=== PATIENT | female | born 1990 | race Caucasian/White ===

== ENCOUNTER 2018-03-24 15:44 | Emergency (ER) | payer BC ==
[2018-03-24 17:27] LABS: Absolute Monocytes 0.8 K/uL (0.1-1.3); Absolute Neutrophil 10.3 K/uL (1.8-8.0); Basophils % 0.7 % (0-1.3); Eosinophils % 0.9 % (0-4.4); Hematocrit 39.3 % (36.0-45.0); Lymphocytes % 8.5 % (15.3-44.8); MCH 29.7 pg (27.0-35.0); MCV 88.8 fL (80-100); MPV 7.5 fL (7.6-11.3); Monocytes % 6.7 % (3.3-12.3); RBC Red Blood Cell Count 4.42 M/uL (3.86-4.86)
[2018-03-24 17:46] LABS: ALT/SGPT 53 U/L (12-78); AST/SGOT 30 U/L (15-37); Alkaline Phosphatase 61 U/L (45-117); BUN Blood Urea Nitrogen 13 mg/dL (7-18); Bicarbonate 28 mmol/L (21-32); Bilirubin Direct < 0.1 mg/dL (0-0.2); Bilirubin Total 0.2 mg/dL (0.2-1.0); Glucose Level 119 mg/dL (74-106); Lipase 94 U/L (73-393); Potassium 4.1 mmol/L (3.5-5.1); Protein, Total 8.4 g/dL (6.4-8.2); Sodium Level 141 mmol/L (136-145)
[2018-03-24] MEDS ORDERED: MORPHINE 4 MG/ML SYR ONE (17:50)
[2018-03-24] MEDS ORDERED: ONDANSETRON 4 MG/2 ML VIAL ONE (17:50)
[2018-03-24 17:52] LABS: Urine Blood 2+ (NEG); Urine Glucose NEGATIVE (NEG); Urine Protein TRACE (NEG); Urine Specific Gravity >1.030 (1.005-1.030)
--- NOTE | 2018-03-24 18:08 | RAD REPORT ---
EXAM DESCRIPTION: CT - Stone Protocol - 03/24/2018 5:58 pm CLINICAL HISTORY: Abdominal pain. Left flank pain COMPARISON: July 2016 TECHNIQUE: Computed axial tomography of the abdomen pelvis was obtained without oral or IV contrast. Lack of IV and oral contrast limits evaluation of solid organs, bowel, and vessels. Coronal reformat faina images were obtained and reviewed. All CT scans are performed using dose optimization technique as appropriate and may include automated exposure control or mA/KV adjustment according to patient size. FINDINGS: Bilateral small renal calculi. Mild to moderate left hydronephrosis with perirenal strandi ng. 4 millimeter calculus proximal left ureter Hounsfield unit 843. 2 millimeter calculus lies adjace nt to this. The liver has a diminished attenuation consistent with fatty infiltration. Spleen, pancreas and adrenals appear grossly normal There is no evidence of diverticulitis. The appendix appears normal Small umbilical hernia IMPRESSION: Two calculi proximal left ureter resulting in mild to moderate hydronephrosis
[2018-03-24] MEDS ORDERED: KETOROLAC 30 MG/ML INJ ONE (18:53)
[2018-03-24] MEDS ORDERED: NA CHLORIDE 0.9% 1,000 ML ONE (18:53)
[2018-03-24] MEDS ORDERED: TAMSULOSIN 0.4 MG SR CAP ONE (18:53)
--- NOTE | 2018-03-24 19:59 | EDPHYS ---
Physician Documentation [facility] Name: Sharon Bose Age: 27 yrs Sex: Female : 1990 Arrival Date: 03/24/2018 Time: 15:46 Bed 28 Private MD: ED Physician Micheal Gracia HPI: 03/24 17:10 This 27 yrs old Female presents to ER via Ambulatory with complaints of Flank jmm Pain. 17:10 The patient complains of pain in the left flank. The pain radiates to the left upper jmm quadrant. Onset: The symptoms/episode began/occurred this morning. Modifying factors: The symptoms are alleviated by nothing. the symptoms are aggravated by nothing. Associated signs and symptoms: Pertinent positives: diarrhea, nausea, Pertinent negatives:. This is a 27 year old female with no chronic medical conditions that presents to the ED with left flank pain beginning this morning with nausea and diarrhea. Patient states having a history of kidney stones previously. Denies fever. Pain radiates from the flank to the left upper quadrant. . PATIENT BILLER: 16:16 LMP 03/19/2018 jl7 Historical: - Allergies: 16:16 No Known Allergies; jl7 - Home Meds: 16:16 None [Active]; jl7 - PMHx: 16:16 None; jl7 - PSHx: 16:16 None; jl7 - Immunization history:: Adult Immunizations not up to date. - Social history:: Smoking status: Patient/guardian denies using tobacco. - Ebola Screening: : No symptoms or risks identified at this time. ROS: 17:10 Constitutional: Negative for fever, chills, and weight loss, Cardiovascular: Negative jmm for chest pain, palpitations, and edema, Respiratory: Negative for shortness of breath, cough, wheezing, and pleuritic chest pain. 17:10 : Negative for injury, bleeding, discharge, and swelling, Skin: Negative for injury, rash, and discoloration. 17:10 Abdomen/GI: Positive for abdominal pain, nausea, diarrhea. 17:10 Back: Positive for flank pain, on the left. 17:10 All other systems are negative. Exam: 17:10 Constitutional: This is a well developed, well nourished patient who is awake, alert, jmm and in no acute distress. Head/Face: atraumatic. Eyes: EOMI, no conjunctival erythema appreciated Chest/axilla: Normal chest wall appearance and motion. Cardiovascular: Regular rate and rhythm. No edema appreciated Respiratory: Normal respirations, no respiratory distress appreciated 17:10 Abdomen/GI: Inspection: abdomen appears normal, Bowel sounds: normal, Palpation: soft, nontender. 17:10 Back: pain, that is mild, CVA tenderness, that is mild, is noted on the left. 17:10 Musculoskeletal/extremity: ROM: intact in all extremities. 17:10 Skin: Appearance: Color: normal in color. 17:10 Neuro: Orientation: is normal, Mentation: is normal, Memory: is normal. 17:10 Psych: Behavior/mood is pleasant, cooperative. Vital Signs: 16:16 BP 126 / 72; Pulse 87; Resp 16 S; Temp 99(O); Pulse Ox 100% on R/A; Weight 113.4 kg jl7 (R); Height 5 ft. 3 in. (160.02 cm) (R); Pain 8/10; 17:15 BP 124 / 86; Pulse 71; Resp 17; Pulse Ox 100% on R/A; Pain 8/10; ed1 18:25 BP 125 / 84; Pulse 70; Resp 17; Pulse Ox 100% on R/A; Pain 6/10; ed1 19:38 BP 129 / 84; Pulse 76; Resp 16; Pulse Ox 99% on R/A; Pain 7/10; ed1 16:16 Body Mass Index 44.29 (113.40 kg, 160.02 cm) jl7 MDM: 16:39 Patient medically screened. [facility] 19:58 Data reviewed: vital signs, nurses notes. Counseling: I had a detailed discussion with [facility] the patient and/or guardian regarding: the historical points, exam findings, and any diagnostic results supporting the discharge/admit diagnosis, lab results, radiology results, to return to the emergency department if symptoms worsen or persist or if there are any questions or concerns that arise at home. 19:58 Data reviewed: lab test result(s), radiologic studies, CT scan. [facility] 19:58 Response to treatment: the patient's symptoms have markedly improved after treatment. [facility] 03/24 16:56 Order name: Basic Metabolic Panel [facility] 03/24 16:56 Order name: CBC with Diff [facility] 03/24 16:56 Order name: Creatinine for Radiology [facility] 03/24 16:56 Order name: Hepatic Function [facility] 03/24 16:56 Order name: Lipase [facility] 03/24 17:25 Order name: Urine Dipstick--Ancillary (enter results) 03/24 17:25 Order name: Urine --Ancillary (enter results) 03/24 17:28 Order name: CBC with Automated Diff; Complete Time: 18:41 EDMS 03/24 17:45 Order name: Creatinine (Radiology Only); Complete Time: 18:41 EDMS 03/24 17:47 Order name: Basic Metabolic Panel; Complete Time: 18:41 EDMS 03/24 17:47 Order name: Liver (Hepatic) Function; Complete Time: 18:41 EDMS 03/24 17:47 Order name: Lipase; Complete Time: 18:41 EDMS 03/24 17:53 Order name: Urine --Ancillary; Complete Time: 18:41 EDMS 03/24 17:53 Order name: Urine Dipstick-Ancillary; Complete Time: 18:41 [facility] 03/24 16:56 Order name: IV Saline Lock; Complete Time: 17:17 [facility] 03/24 16:56 Order name: Labs collected and sent; Complete Time: 17:17 [facility] 03/24 16:56 Order name: Urine Dipstick-Ancillary (obtain specimen); Complete Time: 17:17 [facility] 03/24 17:10 Order name: CT Stone Protocol [facility] 03/24 18:09 Order name: CT; Complete Time: 18:41 EDMS Administered Medications: 17:47 Drug: morphine 2 mg Route: IVP; Site: right antecubital; hb 18:26 Follow up: Response: No adverse reaction; Pain is unchanged, physician notified ed1 17:47 Drug: Zofran 4 mg Route: IVP; Site: right antecubital; hb 18:27 Follow up: Response: No adverse reaction; Nausea is decreased ed1 18:50 Drug: NS 0.9% 1000 ml Route: IV; Rate: 1 bolus; Site: right antecubital; ed1 20:15 Follow up: IV Status: Completed infusion; IV Intake: 1000ml rv 18:50 Drug: Flomax 0.4 mg Route: PO; ed1 20:16 Follow up: Response: No adverse reaction rv 18:51 Drug: Ketorolac 30 mg Route: IVP; Site: right antecubital; hb 20:16 Follow up: Response: No adverse reaction; Marked relief of symptoms rv Disposition: 03/25 06:35 Co-signature as Attending Physician, Micheal Gracia MD I agree with the assessment and [facility] plan of care. Disposition: 03/24/18 19:58 Discharged to Home. Impression: Calculus of ureter. - Condition is Stable. - Discharge Instructions: Kidney Stones. - Prescriptions for Zofran ODT 4 mg Oral tablet,disintegrating - place 1 tablet by TRANSLINGUAL route every 4-6 hours; 20 tablet. Keflex 500 mg Oral Capsule - take 1 capsule by ORAL route every 12 hours for 10 days; 20 capsule. Tylenol- Codeine #3 300-30 mg Oral Tablet - take 1 tablet by ORAL route every 6 hours As needed; 12 tablet. Flomax 0.4 mg Oral Capsule, Sust. Release 24 hr - take 1 capsule by ORAL route once daily 1/2 hour following the same meal each day; 30 capsule. - Medication Reconciliation Form, Thank You Letter, Antibiotic Education, Prescription Opioid Use form. - Follow up: Farzana Recio MD; When: 2 - 3 days; Reason: Recheck today's complaints, Continuance of care, Re-evaluation by your physician. Signatures: Dispatcher [employer] EDMS Mihceal Gracia MD MD cha Mickail, Joel, PA PA jmm Riggs, Erika, HEALTH DIAGNOSTICS TEACHER HEALTH DIAGNOSTICS TEACHER ed1 Christine Gallagher, RN RN Wil Patel RN RN jl7 Jose Koenig RN RN rv Corrections: (The following items were deleted from the chart) 03/24 20:16 19:58 03/24/2018 19:58 Discharged to Home. Impression: Calculus of ureter. Condition is rv Stable. Forms are Medication Reconciliation Form, Thank You Letter, Antibiotic Education, Prescription Opioid Use. Follow up: Farzana Recio; When: 2 - 3 days; Reason: Recheck today's complaints, Continuance of care, Re-evaluation by your physician. apolinar
--- NOTE | 2018-03-24 19:59 | ER ---
Nurse's Notes [facility] Name: Sharon Bose Age: 27 yrs Sex: Female : 1990 Arrival Date: 03/24/2018 Time: 15:46 Bed 28 Private MD: Diagnosis: Calculus of ureter Presentation: 03/24 16:15 Presenting complaint: Patient states: Left flank pain, N/V/D began at 0900 this morning jl7 and got worse after I ate. Transition of care: patient was not received from another setting of care. Onset of symptoms was March 24, 2018. Risk Assessment: Do you want to hurt yourself or someone else? Patient reports no desire to harm self or others. Initial Sepsis Screen: Does the patient meet any 2 criteria? No. Patient's initial sepsis screen is negative. Does the patient have a suspected source of infection? No. Patient's initial sepsis screen is negative. Care prior to arrival: None. 16:15 Method Of Arrival: Ambulatory 7 16:15 Acuity: ABDIFATAH 3 jl7 Triage Assessment: 16:16 General: Appears in no apparent distress. uncomfortable, Behavior is calm, cooperative, jl7 appropriate for age. Pain: Complains of pain in left flank Pain does not radiate. Pain currently is 8 out of 10 on a pain scale. Quality of pain is described as aching, sharp, Pain began this morning Is continuous. TAILMAN: 16:16 LMP 03/19/2018 jl7 Historical: - Allergies: 16:16 No Known Allergies; jl7 - Home Meds: 16:16 None [Active]; jl7 - PMHx: 16:16 None; jl7 - PSHx: 16:16 None; jl7 - Immunization history:: Adult Immunizations not up to date. - Social history:: Smoking status: Patient/guardian denies using tobacco. - Ebola Screening: : No symptoms or risks identified at this time. Screenin:26 Abuse screen: Denies threats or abuse. Denies injuries from another. Nutritional ed1 screening: No deficits noted. Tuberculosis screening: No symptoms or risk factors identified. Fall Risk None identified. Assessment: 16:26 General: Appears uncomfortable, Behavior is calm, cooperative. Pain: Complains of pain ed1 in low back area, left low back and left mid back Pain radiates to abdomen Pain currently is 8 out of 10 on a pain scale. Quality of pain is described as sharp, Pain began suddenly, this am. Neuro: Level of Consciousness is awake, alert, obeys commands, Oriented to person, place, time, situation. Cardiovascular: Denies chest pain, Heart tones S1 S2 present. Respiratory: Airway is patent Respiratory effort is even, unlabored, Respiratory pattern is regular, symmetrical, Denies cough, shortness of breath. GI: Reports nausea, Patient currently denies diarrhea, vomiting. : Denies burning with urination, cramping discharge. EENT: No signs and/or symptoms were reported regarding the EENT system. Derm: Skin is pink, warm \T\ dry. Musculoskeletal: Circulation, motion, and sensation intact. 16:35 Reassessment: I agree with previous assessment. hb 17:15 Reassessment: Patient appears in no apparent distress at this time. No changes from ed1 previously documented assessment. Patient and/or family updated on plan of care and expected duration. Pain level reassessed. Patient is alert, oriented x 3, equal unlabored respirations, skin warm/dry/pink. Patient states symptoms have not improved. 18:25 Reassessment: Patient appears in no apparent distress at this time. Patient and/or ed1 family updated on plan of care and expected duration. Pain level reassessed. Patient is alert, oriented x 3, equal unlabored respirations, skin warm/dry/pink. Patient states symptoms have not improved. 19:38 Reassessment: Patient appears in no apparent distress at this time. No changes from ed1 previously documented assessment. Patient and/or family updated on plan of care and expected duration. Pain level reassessed. Patient is alert, oriented x 3, equal unlabored respirations, skin warm/dry/pink. Patient states symptoms have not improved. Vital Signs: 16:16 BP 126 / 72; Pulse 87; Resp 16 S; Temp 99(O); Pulse Ox 100% on R/A; Weight 113.4 kg jl7 (R); Height 5 ft. 3 in. (160.02 cm) (R); Pain 8/10; 17:15 BP 124 / 86; Pulse 71; Resp 17; Pulse Ox 100% on R/A; Pain 8/10; ed1 18:25 BP 125 / 84; Pulse 70; Resp 17; Pulse Ox 100% on R/A; Pain 6/10; ed1 19:38 BP 129 / 84; Pulse 76; Resp 16; Pulse Ox 99% on R/A; Pain 7/10; ed1 16:16 Body Mass Index 44.29 (113.40 kg, 160.02 cm) jl7 ED Course: 15:46 Patient arrived in ED. rg4 16:16 Triage completed. jl7 16:16 Arm band placed on right wrist. jl7 16:18 Wil Patel, RN is Primary Nurse. jl7 16:22 Elizabeth Cavanaugh LVN is Primary Nurse. ed1 16:26 Cyril Astorga PA is PHCP. jmm 16:26 Micheal Gracia MD is Attending Physician. jmm 16:26 Patient has correct armband on for positive identification. Bed in low position. Call ed1 light in reach. 16:28 Awaiting ED provider evaluation. ed1 17:15 Initial lab(s) drawn, by fl, sent to lab. Inserted saline lock: 22 gauge in right ed1 antecubital area, using aseptic technique. Blood collected. 17:17 Radiology exam delayed due to test not completed at this time. kw1 17:57 CT completed. Patient tolerated procedure well. Patient moved back from CT. nj 19:58 Farzana Recio MD is Referral Physician. [facility] 20:15 No provider procedures requiring assistance completed. IV discontinued, intact, rv bleeding controlled, No redness/swelling at site. Pressure dressing applied. Administered Medications: 17:47 Drug: morphine 2 mg Route: IVP; Site: right antecubital; hb 18:26 Follow up: Response: No adverse reaction; Pain is unchanged, physician notified ed1 17:47 Drug: Zofran 4 mg Route: IVP; Site: right antecubital; hb 18:27 Follow up: Response: No adverse reaction; Nausea is decreased ed1 18:50 Drug: NS 0.9% 1000 ml Route: IV; Rate: 1 bolus; Site: right antecubital; ed1 20:15 Follow up: IV Status: Completed infusion; IV Intake: 1000ml rv 18:50 Drug: Flomax 0.4 mg Route: PO; ed1 20:16 Follow up: Response: No adverse reaction rv 18:51 Drug: Ketorolac 30 mg Route: IVP; Site: right antecubital; hb 20:16 Follow up: Response: No adverse reaction; Marked relief of symptoms rv Intake: 20:15 IV: 1000ml; Total: 1000ml. rv Outcome: 19:58 Discharge ordered by MD. jiang 20:15 Discharged to home ambulatory, with significant other. rv 20:15 Condition: good 20:15 Discharge instructions given to patient, Instructed on discharge instructions, follow up and referral plans. medication usage, Demonstrated understanding of instructions, follow-up care, medications, Prescriptions given X 4. 20:16 Patient left the ED. rv Signatures: Cyril Astorga PA PA jmm Riggs, Erika, FLEXO OPERATOR FLEXO OPERATOR ed1 Christine Gallagher, RN RN Tennille Bran rg4 Supa Man Jahala, RN RN jl7 Luz Elena Gabriel kw1 Jose Koenig RN RN rv
== END 2018-03-24 20:16 | disposition home or self-care (01) ==
LOC: ER 15:44
DX: N20.1 Calculus of ureter (principal)
CPT/HCPCS: 36415; 74176; 76377; 80048; 80076; 81003; 81025; 83690; 85025; 96361; 96374; 96375; 99284; J2405; J7030

== ENCOUNTER 2020-11-22 11:49 | Emergency (ER) | payer OTHER ==
--- OUTSIDE RECORDS SUMMARY | 2020-11-22 11:55 | XMS REPORT | Continuity of Care Document ---
:1990 Author Organization [facility] t Address [address] [place] [address] Care Team Providers Name Role Phone Unavailable Unavailable Unavailable Payers Payer Name Policy Type Policy Number Effective Date Expiration Date S ource Problems This patient has no known problems. Allergies, Adverse Reactions, Alerts Allergy Allergy Status Severity Reaction(s) Onset Inactive Treating Comm ents Source Name Type Date Date Clinician No Known DA Active U [facility] Allergie 8-27 Clear s 00:00: Bran 00 [facility] Medications This patient has no known medications. Procedures This patient has no known procedures. Results Test Description Test Time Test Comments Results Result Comments Source CBC W/AUTO DIFF 2018-12-31 07:20:00 Test Item Value Reference Range Interpretation Comme nts WHITE BLOOD CELL (test code = WBC) 12.4 K/mm3 4.5-12.5 N RED BLOOD CELL (test code = RBC) 3.81 mill/mm3 3.7-5.2 N HEMOGLOBIN (test code = HGB) 11.3 gram/dL 11.5-15.5 L HEMATOCRIT (test code = HCT) 35.2 % 36.0-46.0 L MEAN CELL VOLUME (test code = MCV) 92.4 fL 80-98 N MEAN CELL HGB (test code = MCH) 29.7 picogram 27.0-33.0 N MEAN CELL HGB CONCETRATION (test code = MCHC) 32.1 gram/dL 33.0-36. 0 L RED CELL DISTRIBUTION WIDTH (test code = RDW) 14.0 % 11.6-16. 2 N RED CELL DISTRIBUTION WIDTH SD (test code = RDW-SD) 47.2 fL 37 .0-51.0 N PLATELET COUNT (test code = PLT) 240 K/mm3 150-450 N MEAN PLATELET VOLUME (test code = MPV) 9.6 fL 6.7-11.0 N NEUTROPHIL % (test code = NT%) 63.6 % 39.0-69.0 N IMMATURE GRANULOCYTE % (test code = IG%) 0.9 % 0.0-5.0 N LYMPHOCYTE % (test code = LY%) 25.1 % 25.0-55.0 N MONOCYTE % (test code = MO%) 8.5 % 0.0-10.0 N EOSINOPHIL % (test code = EO%) 1.5 % 0.0-5.0 N BASOPHIL % (test code = BA%) 0.4 % 0.0-1.0 N NUCLEATED RBC % (test code = NRBC%) 0.0 % 0-0 N NEUTROPHIL # (test code = NT#) 7.90 K/mm3 1.8-7.7 H IMMATURE GRANULOCYTE # (test code = IG#) 0.11 x10 3/uL 0-0.03 H LYMPHOCYTE # (test code = LY#) 3.12 K/mm3 1.0-5.0 N MONOCYTE # (test code = MO#) 1.06 K/mm3 0-0.8 H EOSINOPHIL # (test code = EO#) 0.19 K/mm3 0.0-0.5 N BASOPHIL # (test code = BA#) 0.05 K/mm3 0.0-0.2 N NUCLEATED RBC # (test code = NRBC#) 0.00 K/mm3 0.0-0.1 N MANUAL DIFF REQUIRED (test code = MDIFF) NO SPECIMEN COMMENTS: day 1HIV 1 2 COMBO AG/AB [id number] 00:11:00 Test Item Value Reference Range Interpretation Comments HIV 1 2 COMBO AB/AG NON NONREACTIVE NONREACTIV E HIV AG/AB SCREEN REACTIVE P24 ANTIGEN (test code = NONREACTIVE [id number]) NONREACTIVE HIV 1&2 ANTIBODY NONREACTIVE THE HIV-1 P24 TEST HELPS DISTINGUISH ACU TE HIV-1INFECTIONF ROM ESTABLISHED HIV -1 INFECTION WHEN THE SPECIMEN ISPOSI TIVE FOR HIV-1 P24 A NTIGEN. HIV-1 P24 ANTIG EN IS HIGHEST IN THE FIRST FEW WEEKS AFTERINFECTION URINALYSIS [id number] 21:03:00 Test Item Value Reference Range Interpretation Comments UA COLOR (test code = YELLOW YELLOW COLU) UA APPEARANCE (test code Cloudy CLEAR A = APPU) UA GLUCOSE DIPSTICK (test NEGATIVE mg/dL NEGATIVE code = DGLUU) UA BILIRUBIN DIPSTICK NEGATIVE mg/dL NEGATIVE (test code = BILU) UA KETONE DIPSTICK (test NEGATIVE mg/dL NEGATIVE code = KETU) UA SPECIFIC GRAVITY (test 1.025 1.001-1.035 code = SGU) UA BLOOD DIPSTICK (test 0.2 mg/dL (2+) mg/dL NEGATIVE A code = MADHU) UA PH DIPSTICK (test code 6.5 5.0-8.0 = KELTON) UA PROTEIN DIPSTICK (test 50 (1+) mg/dL NEGATIVE A code = PROU) UA UROBILINIOGEN DIPSTICK Normal mg/dL NEGATIVE (test code = URO) UA NITRITE DIPSTICK (test NEGATIVE NEGATIVE code = FIORELLA) UA LEUKOCYTE ESTERASE W 500 Koko/uL (3+) NEGATIVE A REFLEX (test code = Koko/uL LEUUR) UA WBC (test code = WBCU) 21-50 per HPF 0-5 A UA RBC (test code = RBCU) 21-50 #/HPF 0-5 UA EPITHELIAL CELLS (test MANY per HPF FEW code = EPIU) UA BACTERIA (test code = FEW #/HPF NONE A BACU) UA CALCIUM OXALATE FEW #/HPF NONE A CRYSTALS (test code = CAOXU) UA HYALINE CAST (test 0-2 #/LPF 0-5 code = HYALU) UA MUCUS (test code = FEW #/LPF FEW MUCU) UA AMORPHOUS SEDIMENT FEW #/LPF NONE (test code = AMORU) URINALYSIS [id number] 20:58:00 Test Item Value Reference Range Interpretation Comments UA COLOR (test code = YELLOW YELLOW COLU) UA APPEARANCE (test code Cloudy CLEAR A = APPU) UA GLUCOSE DIPSTICK (test NEGATIVE mg/dL NEGATIVE code = DGLUU) UA BILIRUBIN DIPSTICK NEGATIVE mg/dL NEGATIVE (test code = BILU) UA KETONE DIPSTICK (test NEGATIVE mg/dL NEGATIVE code = KETU) UA SPECIFIC GRAVITY (test 1.025 1.001-1.035 code = SGU) UA BLOOD DIPSTICK (test 0.2 mg/dL (2+) mg/dL NEGATIVE A code = MADHU) UA PH DIPSTICK (test code 6.5 5.0-8.0 = KELTON) UA PROTEIN DIPSTICK (test 50 (1+) mg/dL NEGATIVE A code = PROU) UA UROBILINIOGEN DIPSTICK Normal mg/dL NEGATIVE (test code = URO) UA NITRITE DIPSTICK (test NEGATIVE NEGATIVE code = FIORELLA) UA LEUKOCYTE ESTERASE W 500 Koko/uL (3+) NEGATIVE A REFLEX (test code = Koko/uL LEUUR) UA WBC (test code = WBCU) per HPF 0-5 UA RBC (test code = RBCU) per HPF 0-5 UA EPITHELIAL CELLS (test per HPF Few code = EPIU) UA BACTERIA (test code = per HPF NONE BACU) URINALYSIS [id number] 20:58:00 Test Item Value Reference Range Interpretation Comments UA COLOR (test code = YELLOW YELLOW COLU) UA APPEARANCE (test code Cloudy CLEAR A = APPU) UA GLUCOSE DIPSTICK (test NEGATIVE mg/dL NEGATIVE code = DGLUU) UA BILIRUBIN DIPSTICK NEGATIVE mg/dL NEGATIVE (test code = BILU) UA KETONE DIPSTICK (test NEGATIVE mg/dL NEGATIVE code = KETU) UA SPECIFIC GRAVITY (test 1.025 1.001-1.035 code = SGU) UA BLOOD DIPSTICK (test 0.2 mg/dL (2+) mg/dL NEGATIVE A code = MADHU) UA PH DIPSTICK (test code 6.5 5.0-8.0 = KELTON) UA PROTEIN DIPSTICK (test 50 (1+) mg/dL NEGATIVE A code = PROU) UA UROBILINIOGEN DIPSTICK Normal mg/dL NEGATIVE (test code = URO) UA NITRITE DIPSTICK (test NEGATIVE NEGATIVE code = FIORELLA) UA LEUKOCYTE ESTERASE W 500 Koko/uL (3+) NEGATIVE A REFLEX (test code = Koko/uL LEUUR) UA WBC (test code = WBCU) per HPF 0-5 UA RBC (test code = RBCU) per HPF 0-5 UA EPITHELIAL CELLS (test per HPF Few code = EPIU) UA BACTERIA (test code = per HPF NONE BACU) AG HEPAT B [id number] 19:50:00 Test Item Value Reference Range Interpretation Comments AG HEPAT B SURF (test code Nonreactive Index Nonreactive = HBSAG) AB [id number] 19:50:00 Test Item Value Reference Range Interpretation Comments AB TREPONEMA (test code = Nonreactive Index NonReactive TREPAB) COMPREHENSIVE METABOLIC [id number] 19:23:00 Test Item Value Reference Range Interpretation Comments SODIUM (test code = 141 mmol/L 136-145 N NA) POTASSIUM (test code = 3.7 mmol/L 3.5-5.1 N K) CHLORIDE (test code = 108.0 mmol/L 98-107 H CL) CARBON DIOXIDE (test 22.0 mmol/L 21-32 N code = CO2) ANION GAP (test code = 14.7 10-20 N GAP) GLUCOSE (test code = 85 mg/dL 74-106 N GLU) BLOOD UREA NITROGEN 9 mg/dL 7-18 N (test code = BUN) GLOMERULAR FILTRATION > 60 mL/min >=60 Estima faina GFR by RATE (test code = GFR) using Modified MDRD formula.Chronic kidney disease is defined as eith er kidney damageor GFR <60 mL/min/1.73 m2 for >3 months. CREATININE (test code 0.60 mg/dL 0.55-1.02 N Note change in = CREAT) reference range due to change in reagent. BUN/CREATININE RATIO 15.0 10-20 N (test code = BUN/CREA) TOTAL PROTEIN (test 7.2 gram/dL 6.4-8.2 N code = PROT) ALBUMIN (test code = 2.7 g/dL 3.4-5.0 L ALB) GLOBULIN (test code = 4.5 gram/dL 2.7-4.2 H GLOB) ALBUMIN/GLOBULIN RATIO 0.6 0.75-1.50 L (test code = A/G) CALCIUM (test code = 9.6 mg/dL 8.5-10.1 N CA) BILIRUBIN TOTAL (test 0.20 mg/dL 0.0-1.0 N code = BILT) SGOT/AST (test code = 9 IUnit/L 15-37 L AST) SGPT/ALT (test code = 16 IUnit/L 12-78 N ALT) ALKALINE PHOSPHATASE 95 IUnit/L 45-117 N Note change in TOTAL (test code = reference range due ALKP) to change in reagent. URIC [id number] 19:23:00 Test Item Value Reference Range Interpretation Comments URIC ACID (test code = URIC) 3.5 mg/dL 2.6-7.2 N COMPREHENSIVE METABOLIC [id number] 19:15:00 Test Item Value Reference Range Interpretation Comments SODIUM (test code = NA) 141 mmol/L 136-145 N POTASSIUM (test code = K) 3.7 mmol/L 3.5-5.1 N CHLORIDE (test code = CL) 108.0 mmol/L 98-107 H CARBON DIOXIDE (test code = CO2) mmol/L 21-32 ANION GAP (test code = GAP) 10-20 GLUCOSE (test code = GLU) mg/dL 74-106 BLOOD UREA NITROGEN (test code = mg/dL 7-18 BUN) GLOMERULAR FILTRATION RATE (test mL/min >=60 code = GFR) CREATININE (test code = CREAT) mg/dL 0.55-1.02 BUN/CREATININE RATIO (test code 10-20 = BUN/CREA) TOTAL PROTEIN (test code = PROT) gram/dL 6.4-8.2 ALBUMIN (test code = ALB) g/dL 3.4-5.0 GLOBULIN (test code = GLOB) gram/dL 2.7-4.2 ALBUMIN/GLOBULIN RATIO (test 0.75-1.50 code = A/G) CALCIUM (test code = CA) mg/dL 8.5-10.1 BILIRUBIN TOTAL (test code = mg/dL 0.0-1.0 BILT) SGOT/AST (test code = AST) IUnit/L 15-37 SGPT/ALT (test code = ALT) IUnit/L 12-78 ALKALINE PHOSPHATASE TOTAL (test IUnit/L 45-117 code = ALKP) URIC [id number] 19:15:00 Test Item Value Reference Range Interpretation Comments URIC ACID (test code = URIC) mg/dL 2.6-7.2 CBC W/AUTO [id number] 19:02:00 Test Item Value Reference Range Interpretation Comments WHITE BLOOD CELL (test code = 10.9 K/mm3 4.5-12.5 N WBC) RED BLOOD CELL (test code = 3.82 mill/mm3 3.7-5.2 N RBC) HEMOGLOBIN (test code = HGB) 11.4 gram/dL 11.5-15.5 L HEMATOCRIT (test code = HCT) 34.2 % 36.0-46.0 L MEAN CELL VOLUME (test code = 89.5 fL 80-98 N MCV) MEAN CELL HGB (test code = MCH) 29.8 picogram 27.0-33.0 N MEAN CELL HGB CONCETRATION 33.3 gram/dL 33.0-36.0 N (test code = MCHC) RED CELL DISTRIBUTION WIDTH 13.8 % 11.6-16.2 N (test code = RDW) RED CELL DISTRIBUTION WIDTH SD 44.8 fL 37.0-51.0 N (test code = RDW-SD) PLATELET COUNT (test code = 271 K/mm3 150-450 N PLT) MEAN PLATELET VOLUME (test code 9.6 fL 6.7-11.0 N = MPV) NEUTROPHIL % (test code = NT%) 68.2 % 39.0-69.0 N IMMATURE GRANULOCYTE % (test 0.7 % 0.0-5.0 N code = IG%) LYMPHOCYTE % (test code = LY%) 18.2 % 25.0-55.0 L MONOCYTE % (test code = MO%) 11.8 % 0.0-10.0 H EOSINOPHIL % (test code = EO%) 0.8 % 0.0-5.0 N BASOPHIL % (test code = BA%) 0.3 % 0.0-1.0 N NUCLEATED RBC % (test code = 0.0 % 0-0 N NRBC%) NEUTROPHIL # (test code = NT#) 7.43 K/mm3 1.8-7.7 N IMMATURE GRANULOCYTE # (test 0.08 x10 3/uL 0-0.03 H code = IG#) LYMPHOCYTE # (test code = LY#) 1.99 K/mm3 1.0-5.0 N MONOCYTE # (test code = MO#) 1.29 K/mm3 0-0.8 H EOSINOPHIL # (test code = EO#) 0.09 K/mm3 0.0-0.5 N BASOPHIL # (test code = BA#) 0.03 K/mm3 0.0-0.2 N NUCLEATED RBC # (test code = 0.00 K/mm3 0.0-0.1 N NRBC#) UA GLUCOSE DIPSTIC [id number] 14:31:00 Test Item Value Reference Range Interpretation Comments UA GLUCOSE DIPSTIC POC (test code = Negative Negative GLUUP) UA GLU: NEGATIVEKET UA NEGATIVEPH UA 7.0UA NIT NegativePROT UA NEGATIVEBL UA NEGATIVEUA KOKO NegativeTime performed: 1400UA KETONE DIPSTICK [id number] 14:31:00 Test Item Value Reference Range Interpretation Comments UA KETONE DIPSTICK POC (test code = Negative KETUP) UA GLU: NEGATIVEKET UA NEGATIVEPH UA 7.0UA NIT NegativePROT UA NEGATIVEBL UA NEGATIVEUA KOKO NegativeTime performed: 1400UA BLOOD DIPSTIC [id number] 14:31:00 Test Item Value Reference Range Interpretation Comments UA BLOOD DIPSTIC POC (test code = BLUP) NEGATIVE UA GLU: NEGATIVEKET UA NEGATIVEPH UA 7.0UA NIT NegativePROT UA NEGATIVEBL UA NEGATIVEUA KOKO NegativeTime performed: 1400UA PH DIPSTIC [id number] 14:31:00 Test Item Value Reference Range Interpretation Comments UA PH DIPSTIC POC (test code = PHUP) 5-8 UA GLU: NEGATIVEKET UA NEGATIVEPH UA 7.0UA NIT NegativePROT UA NEGATIVEBL UA NEGATIVEUA KOKO NegativeTime performed: 1400UA PROTEIN DIPSTICK [id number] 14:31:00 Test Item Value Reference Range Interpretation Comments UA PROTEIN DIPSTICK POC (test code = Neg -15 DPROUP) UA GLU: NEGATIVEKET UA NEGATIVEPH UA 7.0UA NIT NegativePROT UA NEGATIVEBL UA NEGATIVEUA KOKO NegativeTime performed: 1400UA NITRITE DIPSTICK [id number] 14:31:00 Test Item Value Reference Range Interpretation Comments UA NITRITE DIPSTICK POC (test code = Negative NITUP) UA GLU: NEGATIVEKET UA NEGATIVEPH UA 7.0UA NIT NegativePROT UA NEGATIVEBL UA NEGATIVEUA KOKO NegativeTime performed: 1400UA LEUKOCYTE ESTERASE [id number] 14:31:00 Test Item Value Reference Range Interpretation Comments UA LEUKOCYTE ESTERASE POC (test code = NEGATIVE LEUUPOC) UA GLU: NEGATIVEKET UA NEGATIVEPH UA 7.0UA NIT NegativePROT UA NEGATIVEBL UA NEGATIVEUA KOKO NegativeTime performed: 1400UA GLUCOSE DIPSTIC [id number] 14:31:00 Test Item Value Reference Range Interpretation Comments UA GLUCOSE DIPSTIC POC (test code = Negative Negative GLUUP) UA GLU: NEGATIVEKET UA NEGATIVEPH UA 7.0UA NIT NegativePROT UA NEGATIVEBL UA NEGATIVEUA KOKO NegativeTime performed: 1400UA KETONE DIPSTICK [id number] 14:31:00 Test Item Value Reference Range Interpretation Comments UA KETONE DIPSTICK POC (test code = Negative Negative KETUP) UA GLU: NEGATIVEKET UA NEGATIVEPH UA 7.0UA NIT NegativePROT UA NEGATIVEBL UA NEGATIVEUA KOKO NegativeTime performed: 1400UA BLOOD DIPSTIC [id number] 14:31:00 Test Item Value Reference Range Interpretation Comments UA BLOOD DIPSTIC POC (test code = BLUP) NEGATIVE UA GLU: NEGATIVEKET UA NEGATIVEPH UA 7.0UA NIT NegativePROT UA NEGATIVEBL UA NEGATIVEUA KOKO NegativeTime performed: 1400UA PH DIPSTIC [id number] 14:31:00 Test Item Value Reference Range Interpretation Comments UA PH DIPSTIC POC (test code = PHUP) 5-8 UA GLU: NEGATIVEKET UA NEGATIVEPH UA 7.0UA NIT NegativePROT UA NEGATIVEBL UA NEGATIVEUA KOKO NegativeTime performed: 1400UA PROTEIN DIPSTICK [id number] 14:31:00 Test Item Value Reference Range Interpretation Comments UA PROTEIN DIPSTICK POC (test code = Neg -15 DPROUP) UA GLU: NEGATIVEKET UA NEGATIVEPH UA 7.0UA NIT NegativePROT UA NEGATIVEBL UA NEGATIVEUA KOKO NegativeTime performed: 1400UA NITRITE DIPSTICK [id number] 14:31:00 Test Item Value Reference Range Interpretation Comments UA NITRITE DIPSTICK POC (test code = Negative NITUP) UA GLU: NEGATIVEKET UA NEGATIVEPH UA 7.0UA NIT NegativePROT UA NEGATIVEBL UA NEGATIVEUA KOKO NegativeTime performed: 1400UA LEUKOCYTE ESTERASE [id number] 14:31:00 Test Item Value Reference Range Interpretation Comments UA LEUKOCYTE ESTERASE POC (test code = NEGATIVE LEUUPOC) UA GLU: NEGATIVEKET UA NEGATIVEPH UA 7.0UA NIT NegativePROT UA NEGATIVEBL UA NEGATIVEUA KOKO NegativeTime performed: 1400UA GLUCOSE DIPSTIC [id number] 14:31:00 Test Item Value Reference Range Interpretation Comments UA GLUCOSE DIPSTIC POC (test code = Negative Negative GLUUP) UA GLU: NEGATIVEKET UA NEGATIVEPH UA 7.0UA NIT NegativePROT UA NEGATIVEBL UA NEGATIVEUA KOKO NegativeTime performed: 1400UA KETONE DIPSTICK [id number] 14:31:00 Test Item Value Reference Range Interpretation Comments UA KETONE DIPSTICK POC (test code = Negative Negative KETUP) UA GLU: NEGATIVEKET UA NEGATIVEPH UA 7.0UA NIT NegativePROT UA NEGATIVEBL UA NEGATIVEUA KOKO NegativeTime performed: 1400UA BLOOD DIPSTIC [id number] 14:31:00 Test Item Value Reference Range Interpretation Comments UA BLOOD DIPSTIC POC (test code = Negative NEGATIVE BLUP) UA GLU: NEGATIVEKET UA NEGATIVEPH UA 7.0UA NIT NegativePROT UA NEGATIVEBL UA NEGATIVEUA KOKO NegativeTime performed: 1400UA PH DIPSTIC [id number] 14:31:00 Test Item Value Reference Range Interpretation Comments UA PH DIPSTIC POC (test code = PHUP) 5-8 UA GLU: NEGATIVEKET UA NEGATIVEPH UA 7.0UA NIT NegativePROT UA NEGATIVEBL UA NEGATIVEUA KOKO NegativeTime performed: 1400UA PROTEIN DIPSTICK [id number] 14:31:00 Test Item Value Reference Range Interpretation Comments UA PROTEIN DIPSTICK POC (test code = Neg -15 DPROUP) UA GLU: NEGATIVEKET UA NEGATIVEPH UA 7.0UA NIT NegativePROT UA NEGATIVEBL UA NEGATIVEUA KOKO NegativeTime performed: 1400UA NITRITE DIPSTICK [id number] 14:31:00 Test Item Value Reference Range Interpretation Comments UA NITRITE DIPSTICK POC (test code = Negative NITUP) UA GLU: NEGATIVEKET UA NEGATIVEPH UA 7.0UA NIT NegativePROT UA NEGATIVEBL UA NEGATIVEUA KOKO NegativeTime performed: 1400UA LEUKOCYTE ESTERASE [id number] 14:31:00 Test Item Value Reference Range Interpretation Comments UA LEUKOCYTE ESTERASE POC (test code = NEGATIVE LEUUPOC) UA GLU: NEGATIVEKET UA NEGATIVEPH UA 7.0UA NIT NegativePROT UA NEGATIVEBL UA NEGATIVEUA KOKO NegativeTime performed: 1400UA GLUCOSE DIPSTIC [id number] 14:31:00 Test Item Value Reference Range Interpretation Comments UA GLUCOSE DIPSTIC POC (test code = Negative Negative GLUUP) UA GLU: NEGATIVEKET UA NEGATIVEPH UA 7.0UA NIT NegativePROT UA NEGATIVEBL UA NEGATIVEUA KOKO NegativeTime performed: 1400UA KETONE DIPSTICK [id number] 14:31:00 Test Item Value Reference Range Interpretation Comments UA KETONE DIPSTICK POC (test code = Negative Negative KETUP) UA GLU: NEGATIVEKET UA NEGATIVEPH UA 7.0UA NIT NegativePROT UA NEGATIVEBL UA NEGATIVEUA KOKO NegativeTime performed: 1400UA BLOOD DIPSTIC [id number] 14:31:00 Test Item Value Reference Range Interpretation Comments UA BLOOD DIPSTIC POC (test code = Negative NEGATIVE BLUP) UA GLU: NEGATIVEKET UA NEGATIVEPH UA 7.0UA NIT NegativePROT UA NEGATIVEBL UA NEGATIVEUA KOKO NegativeTime performed: 1400UA PH DIPSTIC [id number] 14:31:00 Test Item Value Reference Range Interpretation Comments UA PH DIPSTIC POC (test code = PHUP) 7 5-8 N UA GLU: NEGATIVEKET UA NEGATIVEPH UA 7.0UA NIT NegativePROT UA NEGATIVEBL UA NEGATIVEUA KOKO NegativeTime performed: 1400UA PROTEIN DIPSTICK [id number] 14:31:00 Test Item Value Reference Range Interpretation Comments UA PROTEIN DIPSTICK POC (test code = Neg -15 DPROUP) UA GLU: NEGATIVEKET UA NEGATIVEPH UA 7.0UA NIT NegativePROT UA NEGATIVEBL UA NEGATIVEUA KOKO NegativeTime performed: 1400UA NITRITE DIPSTICK [id number] 14:31:00 Test Item Value Reference Range Interpretation Comments UA NITRITE DIPSTICK POC (test code = Negative NITUP) UA GLU: NEGATIVEKET UA NEGATIVEPH UA 7.0UA NIT NegativePROT UA NEGATIVEBL UA NEGATIVEUA KOKO NegativeTime performed: 1400UA LEUKOCYTE ESTERASE [id number] 14:31:00 Test Item Value Reference Range Interpretation Comments UA LEUKOCYTE ESTERASE POC (test code = NEGATIVE LEUUPOC) UA GLU: NEGATIVEKET UA NEGATIVEPH UA 7.0UA NIT NegativePROT UA NEGATIVEBL UA NEGATIVEUA KOKO NegativeTime performed: 1400UA GLUCOSE DIPSTIC [id number] 14:31:00 Test Item Value Reference Range Interpretation Comments UA GLUCOSE DIPSTIC POC (test code = Negative Negative GLUUP) UA GLU: NEGATIVEKET UA NEGATIVEPH UA 7.0UA NIT NegativePROT UA NEGATIVEBL UA NEGATIVEUA KOKO NegativeTime performed: 1400UA KETONE DIPSTICK [id number] 14:31:00 Test Item Value Reference Range Interpretation Comments UA KETONE DIPSTICK POC (test code = Negative Negative KETUP) UA GLU: NEGATIVEKET UA NEGATIVEPH UA 7.0UA NIT NegativePROT UA NEGATIVEBL UA NEGATIVEUA KOKO NegativeTime performed: 1400UA BLOOD DIPSTIC [id number] 14:31:00 Test Item Value Reference Range Interpretation Comments UA BLOOD DIPSTIC POC (test code = Negative NEGATIVE BLUP) UA GLU: NEGATIVEKET UA NEGATIVEPH UA 7.0UA NIT NegativePROT UA NEGATIVEBL UA NEGATIVEUA KOKO NegativeTime performed: 1400UA PH DIPSTIC [id number] 14:31:00 Test Item Value Reference Range Interpretation Comments UA PH DIPSTIC POC (test code = PHUP) 7 5-8 N UA GLU: NEGATIVEKET UA NEGATIVEPH UA 7.0UA NIT NegativePROT UA NEGATIVEBL UA NEGATIVEUA KOKO NegativeTime performed: 1400UA PROTEIN DIPSTICK [id number] 14:31:00 Test Item Value Reference Range Interpretation Comments UA PROTEIN DIPSTICK POC (test code = Negative Neg -15 DPROUP) UA GLU: NEGATIVEKET UA NEGATIVEPH UA 7.0UA NIT NegativePROT UA NEGATIVEBL UA NEGATIVEUA KOKO NegativeTime performed: 1400UA NITRITE DIPSTICK [id number] 14:31:00 Test Item Value Reference Range Interpretation Comments UA NITRITE DIPSTICK POC (test code = Negative NITUP) UA GLU: NEGATIVEKET UA NEGATIVEPH UA 7.0UA NIT NegativePROT UA NEGATIVEBL UA NEGATIVEUA KOKO NegativeTime performed: 1400UA LEUKOCYTE ESTERASE [id number] 14:31:00 Test Item Value Reference Range Interpretation Comments UA LEUKOCYTE ESTERASE POC (test code = NEGATIVE LEUUPOC) UA GLU: NEGATIVEKET UA NEGATIVEPH UA 7.0UA NIT NegativePROT UA NEGATIVEBL UA NEGATIVEUA KOKO NegativeTime performed: 1400UA GLUCOSE DIPSTIC [id number] 14:31:00 Test Item Value Reference Range Interpretation Comments UA GLUCOSE DIPSTIC POC (test code = Negative Negative GLUUP) UA GLU: NEGATIVEKET UA NEGATIVEPH UA 7.0UA NIT NegativePROT UA NEGATIVEBL UA NEGATIVEUA KOKO NegativeTime performed: 1400UA KETONE DIPSTICK [id number] 14:31:00 Test Item Value Reference Range Interpretation Comments UA KETONE DIPSTICK POC (test code = Negative Negative KETUP) UA GLU: NEGATIVEKET UA NEGATIVEPH UA 7.0UA NIT NegativePROT UA NEGATIVEBL UA NEGATIVEUA KOKO NegativeTime performed: 1400UA BLOOD DIPSTIC [id number] 14:31:00 Test Item Value Reference Range Interpretation Comments UA BLOOD DIPSTIC POC (test code = Negative NEGATIVE BLUP) UA GLU: NEGATIVEKET UA NEGATIVEPH UA 7.0UA NIT NegativePROT UA NEGATIVEBL UA NEGATIVEUA KOKO NegativeTime performed: 1400UA PH DIPSTIC [id number] 14:31:00 Test Item Value Reference Range Interpretation Comments UA PH DIPSTIC POC (test code = PHUP) 7 5-8 N UA GLU: NEGATIVEKET UA NEGATIVEPH UA 7.0UA NIT NegativePROT UA NEGATIVEBL UA NEGATIVEUA [place] NegativeTime performed: 1400UA PROTEIN DIPSTICK [id number] 14:31:00 Test Item Value Reference Range Interpretation Comments UA PROTEIN DIPSTICK POC (test code = Negative Neg -15 DPROUP) UA GLU: NEGATIVEKET UA NEGATIVEPH UA 7.0UA NIT NegativePROT UA NEGATIVEBL UA NEGATIVEUA [place] NegativeTime performed: 1400UA NITRITE DIPSTICK [id number] 14:31:00 Test Item Value Reference Range Interpretation Comments UA NITRITE DIPSTICK POC (test code = Negative Negative NITUP) UA GLU: NEGATIVEKET UA NEGATIVEPH UA 7.0UA NIT NegativePROT UA NEGATIVEBL UA NEGATIVEUA [place] NegativeTime performed: 1400UA LEUKOCYTE ESTERASE [id number] 14:31:00 Test Item Value Reference Range Interpretation Comments UA LEUKOCYTE ESTERASE POC (test code = NEGATIVE LEUUPOC) UA GLU: NEGATIVEKET UA NEGATIVEPH UA 7.0UA NIT NegativePROT UA NEGATIVEBL UA NEGATIVEUA [place] NegativeTime performed: 1400UA GLUCOSE DIPSTIC [id number] 14:31:00 Test Item Value Reference Range Interpretation Comments UA GLUCOSE DIPSTIC POC (test code = Negative Negative GLUUP) UA GLU: NEGATIVEKET UA NEGATIVEPH UA 7.0UA NIT NegativePROT UA NEGATIVEBL UA NEGATIVEUA [place] NegativeTime performed: 1400UA KETONE DIPSTICK [id number] 14:31:00 Test Item Value Reference Range Interpretation Comments UA KETONE DIPSTICK POC (test code = Negative Negative KETUP) UA GLU: NEGATIVEKET UA NEGATIVEPH UA 7.0UA NIT NegativePROT UA NEGATIVEBL UA NEGATIVEUA [place] NegativeTime performed: 1400UA BLOOD DIPSTIC [id number] 14:31:00 Test Item Value Reference Range Interpretation Comments UA BLOOD DIPSTIC POC (test code = Negative NEGATIVE BLUP) UA GLU: NEGATIVEKET UA NEGATIVEPH UA 7.0UA NIT NegativePROT UA NEGATIVEBL UA NEGATIVEUA [place] NegativeTime performed: 1400UA PH DIPSTIC [id number] 14:31:00 Test Item Value Reference Range Interpretation Comments UA PH DIPSTIC POC (test code = PHUP) 7 5-8 N UA GLU: NEGATIVEKET UA NEGATIVEPH UA 7.0UA NIT NegativePROT UA NEGATIVEBL UA NEGATIVEUA [place] NegativeTime performed: 1400UA PROTEIN DIPSTICK [id number] 14:31:00 Test Item Value Reference Range Interpretation Comments UA PROTEIN DIPSTICK POC (test code = Negative Neg -15 DPROUP) UA GLU: NEGATIVEKET UA NEGATIVEPH UA 7.0UA NIT NegativePROT UA NEGATIVEBL UA NEGATIVEUA [place] NegativeTime performed: 1400UA NITRITE DIPSTICK [id number] 14:31:00 Test Item Value Reference Range Interpretation Comments UA NITRITE DIPSTICK POC (test code = Negative Negative NITUP) UA GLU: NEGATIVEKET UA NEGATIVEPH UA 7.0UA NIT NegativePROT UA NEGATIVEBL UA NEGATIVEUA [place] NegativeTime performed: 1400UA LEUKOCYTE ESTERASE [id number] 14:31:00 Test Item Value Reference Range Interpretation Comments UA LEUKOCYTE ESTERASE POC (test code NEGATIVE NEGATIVE = LEUUPOC) UA GLU: NEGATIVEKET UA NEGATIVEPH UA 7.0UA NIT NegativePROT UA NEGATIVEBL UA NEGATIVEUA [place] NegativeTime performed: 1400UA GLUCOSE DIPSTIC [id number] 16:26:00 Test Item Value Reference Range Interpretation Comments UA GLUCOSE DIPSTIC POC (test code = Negative Negative GLUUP) UA GLU: NEGATIVEKET UA NEGATIVEPH UA 8.0UA NIT NegativePROT UA 15 (TRACE)BL UA NEGATIVEUA KOKO NegativeTime performed: 1600UA KETONE DIPSTICK [id number] 16:26:00 Test Item Value Reference Range Interpretation Comments UA KETONE DIPSTICK POC (test code = Negative KETUP) UA GLU: NEGATIVEKET UA NEGATIVEPH UA 8.0UA NIT NegativePROT UA 15 (TRACE)BL UA NEGATIVEUA KOKO NegativeTime performed: 1600UA BLOOD DIPSTIC [id number] 16:26:00 Test Item Value Reference Range Interpretation Comments UA BLOOD DIPSTIC POC (test code = BLUP) NEGATIVE UA GLU: NEGATIVEKET UA NEGATIVEPH UA 8.0UA NIT NegativePROT UA 15 (TRACE)BL UA NEGATIVEUA KOKO NegativeTime performed: 1600UA PH DIPSTIC [id number] 16:26:00 Test Item Value Reference Range Interpretation Comments UA PH DIPSTIC POC (test code = PHUP) 5-8 UA GLU: NEGATIVEKET UA NEGATIVEPH UA 8.0UA NIT NegativePROT UA 15 (TRACE)BL UA NEGATIVEUA KOKO NegativeTime performed: 1600UA PROTEIN DIPSTICK [id number] 16:26:00 Test Item Value Reference Range Interpretation Comments UA PROTEIN DIPSTICK POC (test code = Neg -15 DPROUP) UA GLU: NEGATIVEKET UA NEGATIVEPH UA 8.0UA NIT NegativePROT UA 15 (TRACE)BL UA NEGATIVEUA KOKO NegativeTime performed: 1600UA NITRITE DIPSTICK [id number] 16:26:00 Test Item Value Reference Range Interpretation Comments UA NITRITE DIPSTICK POC (test code = Negative NITUP) UA GLU: NEGATIVEKET UA NEGATIVEPH UA 8.0UA NIT NegativePROT UA 15 (TRACE)BL UA NEGATIVEUA KOKO NegativeTime performed: 1600UA LEUKOCYTE ESTERASE [id number] 16:26:00 Test Item Value Reference Range Interpretation Comments UA LEUKOCYTE ESTERASE POC (test code = NEGATIVE LEUUPOC) UA GLU: NEGATIVEKET UA NEGATIVEPH UA 8.0UA NIT NegativePROT UA 15 (TRACE)BL UA NEGATIVEUA KOKO NegativeTime performed: 1600UA GLUCOSE DIPSTIC [id number] 16:26:00 Test Item Value Reference Range Interpretation Comments UA GLUCOSE DIPSTIC POC (test code = Negative Negative GLUUP) UA GLU: NEGATIVEKET UA NEGATIVEPH UA 8.0UA NIT NegativePROT UA 15 (TRACE)BL UA NEGATIVEUA KOKO NegativeTime performed: 1600UA KETONE DIPSTICK [id number] 16:26:00 Test Item Value Reference Range Interpretation Comments UA KETONE DIPSTICK POC (test code = Negative Negative KETUP) UA GLU: NEGATIVEKET UA NEGATIVEPH UA 8.0UA NIT NegativePROT UA 15 (TRACE)BL UA NEGATIVEUA KOKO NegativeTime performed: 1600UA BLOOD DIPSTIC [id number] 16:26:00 Test Item Value Reference Range Interpretation Comments UA BLOOD DIPSTIC POC (test code = BLUP) NEGATIVE UA GLU: NEGATIVEKET UA NEGATIVEPH UA 8.0UA NIT NegativePROT UA 15 (TRACE)BL UA NEGATIVEUA KOKO NegativeTime performed: 1600UA PH DIPSTIC [id number] 16:26:00 Test Item Value Reference Range Interpretation Comments UA PH DIPSTIC POC (test code = PHUP) 5-8 UA GLU: NEGATIVEKET UA NEGATIVEPH UA 8.0UA NIT NegativePROT UA 15 (TRACE)BL UA NEGATIVEUA KOKO NegativeTime performed: 1600UA PROTEIN DIPSTICK [id number] 16:26:00 Test Item Value Reference Range Interpretation Comments UA PROTEIN DIPSTICK POC (test code = Neg -15 DPROUP) UA GLU: NEGATIVEKET UA NEGATIVEPH UA 8.0UA NIT NegativePROT UA 15 (TRACE)BL UA NEGATIVEUA KOKO NegativeTime performed: 1600UA NITRITE DIPSTICK [id number] 16:26:00 Test Item Value Reference Range Interpretation Comments UA NITRITE DIPSTICK POC (test code = Negative NITUP) UA GLU: NEGATIVEKET UA NEGATIVEPH UA 8.0UA NIT NegativePROT UA 15 (TRACE)BL UA NEGATIVEUA KOKO NegativeTime performed: 1600UA LEUKOCYTE ESTERASE [id number] 16:26:00 Test Item Value Reference Range Interpretation Comments UA LEUKOCYTE ESTERASE POC (test code = NEGATIVE LEUUPOC) UA GLU: NEGATIVEKET UA NEGATIVEPH UA 8.0UA NIT NegativePROT UA 15 (TRACE)BL UA NEGATIVEUA KOKO NegativeTime performed: 1600UA GLUCOSE DIPSTIC [id number] 16:26:00 Test Item Value Reference Range Interpretation Comments UA GLUCOSE DIPSTIC POC (test code = Negative Negative GLUUP) UA GLU: NEGATIVEKET UA NEGATIVEPH UA 8.0UA NIT NegativePROT UA 15 (TRACE)BL UA NEGATIVEUA KOKO NegativeTime performed: 1600UA KETONE DIPSTICK [id number] 16:26:00 Test Item Value Reference Range Interpretation Comments UA KETONE DIPSTICK POC (test code = Negative Negative KETUP) UA GLU: NEGATIVEKET UA NEGATIVEPH UA 8.0UA NIT NegativePROT UA 15 (TRACE)BL UA NEGATIVEUA KOKO NegativeTime performed: 1600UA BLOOD DIPSTIC [id number] 16:26:00 Test Item Value Reference Range Interpretation Comments UA BLOOD DIPSTIC POC (test code = Negative NEGATIVE BLUP) UA GLU: NEGATIVEKET UA NEGATIVEPH UA 8.0UA NIT NegativePROT UA 15 (TRACE)BL UA NEGATIVEUA KOKO NegativeTime performed: 1600UA PH DIPSTIC [id number] 16:26:00 Test Item Value Reference Range Interpretation Comments UA PH DIPSTIC POC (test code = PHUP) 5-8 UA GLU: NEGATIVEKET UA NEGATIVEPH UA 8.0UA NIT NegativePROT UA 15 (TRACE)BL UA NEGATIVEUA KOKO NegativeTime performed: 1600UA PROTEIN DIPSTICK [id number] 16:26:00 Test Item Value Reference Range Interpretation Comments UA PROTEIN DIPSTICK POC (test code = Neg -15 DPROUP) UA GLU: NEGATIVEKET UA NEGATIVEPH UA 8.0UA NIT NegativePROT UA 15 (TRACE)BL UA NEGATIVEUA KOKO NegativeTime performed: 1600UA NITRITE DIPSTICK [id number] 16:26:00 Test Item Value Reference Range Interpretation Comments UA NITRITE DIPSTICK POC (test code = Negative NITUP) UA GLU: NEGATIVEKET UA NEGATIVEPH UA 8.0UA NIT NegativePROT UA 15 (TRACE)BL UA NEGATIVEUA KOKO NegativeTime performed: 1600UA LEUKOCYTE ESTERASE [id number] 16:26:00 Test Item Value Reference Range Interpretation Comments UA LEUKOCYTE ESTERASE POC (test code = NEGATIVE LEUUPOC) UA GLU: NEGATIVEKET UA NEGATIVEPH UA 8.0UA NIT NegativePROT UA 15 (TRACE)BL UA NEGATIVEUA KOKO NegativeTime performed: 1600UA GLUCOSE DIPSTIC [id number] 16:26:00 Test Item Value Reference Range Interpretation Comments UA GLUCOSE DIPSTIC POC (test code = Negative Negative GLUUP) UA GLU: NEGATIVEKET UA NEGATIVEPH UA 8.0UA NIT NegativePROT UA 15 (TRACE)BL UA NEGATIVEUA KOKO NegativeTime performed: 1600UA KETONE DIPSTICK [id number] 16:26:00 Test Item Value Reference Range Interpretation Comments UA KETONE DIPSTICK POC (test code = Negative Negative KETUP) UA GLU: NEGATIVEKET UA NEGATIVEPH UA 8.0UA NIT NegativePROT UA 15 (TRACE)BL UA NEGATIVEUA KOKO NegativeTime performed: 1600UA BLOOD DIPSTIC [id number] 16:26:00 Test Item Value Reference Range Interpretation Comments UA BLOOD DIPSTIC POC (test code = Negative NEGATIVE BLUP) UA GLU: NEGATIVEKET UA NEGATIVEPH UA 8.0UA NIT NegativePROT UA 15 (TRACE)BL UA NEGATIVEUA KOKO NegativeTime performed: 1600UA PH DIPSTIC [id number] 16:26:00 Test Item Value Reference Range Interpretation Comments UA PH DIPSTIC POC (test code = PHUP) 8 5-8 N UA GLU: NEGATIVEKET UA NEGATIVEPH UA 8.0UA NIT NegativePROT UA 15 (TRACE)BL UA NEGATIVEUA KOKO NegativeTime performed: 1600UA PROTEIN DIPSTICK [id number] 16:26:00 Test Item Value Reference Range Interpretation Comments UA PROTEIN DIPSTICK POC (test code = Neg -15 DPROUP) UA GLU: NEGATIVEKET UA NEGATIVEPH UA 8.0UA NIT NegativePROT UA 15 (TRACE)BL UA NEGATIVEUA KOKO NegativeTime performed: 1600UA NITRITE DIPSTICK [id number] 16:26:00 Test Item Value Reference Range Interpretation Comments UA NITRITE DIPSTICK POC (test code = Negative NITUP) UA GLU: NEGATIVEKET UA NEGATIVEPH UA 8.0UA NIT NegativePROT UA 15 (TRACE)BL UA NEGATIVEUA KOKO NegativeTime performed: 1600UA LEUKOCYTE ESTERASE [id number] 16:26:00 Test Item Value Reference Range Interpretation Comments UA LEUKOCYTE ESTERASE POC (test code = NEGATIVE LEUUPOC) UA GLU: NEGATIVEKET UA NEGATIVEPH UA 8.0UA NIT NegativePROT UA 15 (TRACE)BL UA NEGATIVEUA KOKO NegativeTime performed: 1600UA GLUCOSE DIPSTIC [id number] 16:26:00 Test Item Value Reference Range Interpretation Comments UA GLUCOSE DIPSTIC POC (test code = Negative Negative GLUUP) UA GLU: NEGATIVEKET UA NEGATIVEPH UA 8.0UA NIT NegativePROT UA 15 (TRACE)BL UA NEGATIVEUA KOKO NegativeTime performed: 1600UA KETONE DIPSTICK [id number] 16:26:00 Test Item Value Reference Range Interpretation Comments UA KETONE DIPSTICK POC (test code = Negative Negative KETUP) UA GLU: NEGATIVEKET UA NEGATIVEPH UA 8.0UA NIT NegativePROT UA 15 (TRACE)BL UA NEGATIVEUA KOKO NegativeTime performed: 1600UA BLOOD DIPSTIC [id number] 16:26:00 Test Item Value Reference Range Interpretation Comments UA BLOOD DIPSTIC POC (test code = Negative NEGATIVE BLUP) UA GLU: NEGATIVEKET UA NEGATIVEPH UA 8.0UA NIT NegativePROT UA 15 (TRACE)BL UA NEGATIVEUA KOKO NegativeTime performed: 1600UA PH DIPSTIC [id number] 16:26:00 Test Item Value Reference Range Interpretation Comments UA PH DIPSTIC POC (test code = PHUP) 8 5-8 N UA GLU: NEGATIVEKET UA NEGATIVEPH UA 8.0UA NIT NegativePROT UA 15 (TRACE)BL UA NEGATIVEUA KOKO NegativeTime performed: 1600UA PROTEIN DIPSTICK [id number] 16:26:00 Test Item Value Reference Range Interpretation Comments UA PROTEIN DIPSTICK POC (test code 15 (Trace) Neg -15 A = DPROUP) UA GLU: NEGATIVEKET UA NEGATIVEPH UA 8.0UA NIT NegativePROT UA 15 (TRACE)BL UA NEGATIVEUA OKKO NegativeTime performed: 1600UA NITRITE DIPSTICK [id number] 16:26:00 Test Item Value Reference Range Interpretation Comments UA NITRITE DIPSTICK POC (test code = Negative NITUP) UA GLU: NEGATIVEKET UA NEGATIVEPH UA 8.0UA NIT NegativePROT UA 15 (TRACE)BL UA NEGATIVEUA KOKO NegativeTime performed: 1600UA LEUKOCYTE ESTERASE [id number] 16:26:00 Test Item Value Reference Range Interpretation Comments UA LEUKOCYTE ESTERASE POC (test code = NEGATIVE LEUUPOC) UA GLU: NEGATIVEKET UA NEGATIVEPH UA 8.0UA NIT NegativePROT UA 15 (TRACE)BL UA NEGATIVEUA KOKO NegativeTime performed: 1600UA GLUCOSE DIPSTIC [id number] 16:26:00 Test Item Value Reference Range Interpretation Comments UA GLUCOSE DIPSTIC POC (test code = Negative Negative GLUUP) UA GLU: NEGATIVEKET UA NEGATIVEPH UA 8.0UA NIT NegativePROT UA 15 (TRACE)BL UA NEGATIVEUA KOKO NegativeTime performed: 1600UA KETONE DIPSTICK [id number] 16:26:00 Test Item Value Reference Range Interpretation Comments UA KETONE DIPSTICK POC (test code = Negative Negative KETUP) UA GLU: NEGATIVEKET UA NEGATIVEPH UA 8.0UA NIT NegativePROT UA 15 (TRACE)BL UA NEGATIVEUA KOKO NegativeTime performed: 1600UA BLOOD DIPSTIC [id number] 16:26:00 Test Item Value Reference Range Interpretation Comments UA BLOOD DIPSTIC POC (test code = Negative NEGATIVE BLUP) UA GLU: NEGATIVEKET UA NEGATIVEPH UA 8.0UA NIT NegativePROT UA 15 (TRACE)BL UA NEGATIVEUA KOKO NegativeTime performed: 1600UA PH DIPSTIC [id number] 16:26:00 Test Item Value Reference Range Interpretation Comments UA PH DIPSTIC POC (test code = PHUP) 8 5-8 N UA GLU: NEGATIVEKET UA NEGATIVEPH UA 8.0UA NIT NegativePROT UA 15 (TRACE)BL UA NEGATIVEUA KOKO NegativeTime performed: 1600UA PROTEIN DIPSTICK [id number] 16:26:00 Test Item Value Reference Range Interpretation Comments UA PROTEIN DIPSTICK POC (test code 15 (Trace) Neg -15 A = DPROUP) UA GLU: NEGATIVEKET UA NEGATIVEPH UA 8.0UA NIT NegativePROT UA 15 (TRACE)BL UA NEGATIVEUA KOKO NegativeTime performed: 1600UA NITRITE DIPSTICK [id number] 16:26:00 Test Item Value Reference Range Interpretation Comments UA NITRITE DIPSTICK POC (test code = Negative Negative NITUP) UA GLU: NEGATIVEKET UA NEGATIVEPH UA 8.0UA NIT NegativePROT UA 15 (TRACE)BL UA NEGATIVEUA KOKO NegativeTime performed: 1600UA LEUKOCYTE ESTERASE [id number] 16:26:00 Test Item Value Reference Range Interpretation Comments UA LEUKOCYTE ESTERASE POC (test code = NEGATIVE LEUUPOC) UA GLU: NEGATIVEKET UA NEGATIVEPH UA 8.0UA NIT NegativePROT UA 15 (TRACE)BL UA NEGATIVEUA KOKO NegativeTime performed: 1600UA GLUCOSE DIPSTIC [id number] 16:26:00 Test Item Value Reference Range Interpretation Comments UA GLUCOSE DIPSTIC POC (test code = Negative Negative GLUUP) UA GLU: NEGATIVEKET UA NEGATIVEPH UA 8.0UA NIT NegativePROT UA 15 (TRACE)BL UA NEGATIVEUA KOKO NegativeTime performed: 1600UA KETONE DIPSTICK [id number] 16:26:00 Test Item Value Reference Range Interpretation Comments UA KETONE DIPSTICK POC (test code = Negative Negative KETUP) UA GLU: NEGATIVEKET UA NEGATIVEPH UA 8.0UA NIT NegativePROT UA 15 (TRACE)BL UA NEGATIVEUA KOKO NegativeTime performed: 1600UA BLOOD DIPSTIC [id number] 16:26:00 Test Item Value Reference Range Interpretation Comments UA BLOOD DIPSTIC POC (test code = Negative NEGATIVE BLUP) UA GLU: NEGATIVEKET UA NEGATIVEPH UA 8.0UA NIT NegativePROT UA 15 (TRACE)BL UA NEGATIVEUA KOKO NegativeTime performed: 1600UA PH DIPSTIC [id number] 16:26:00 Test Item Value Reference Range Interpretation Comments UA PH DIPSTIC POC (test code = PHUP) 8 5-8 N UA GLU: NEGATIVEKET UA NEGATIVEPH UA 8.0UA NIT NegativePROT UA 15 (TRACE)BL UA NEGATIVEUA KOKO NegativeTime performed: 1600UA PROTEIN DIPSTICK [id number] 16:26:00 Test Item Value Reference Range Interpretation Comments UA PROTEIN DIPSTICK POC (test code 15 (Trace) Neg -15 A = DPROUP) UA GLU: NEGATIVEKET UA NEGATIVEPH UA 8.0UA NIT NegativePROT UA 15 (TRACE)BL UA NEGATIVEUA KOKO NegativeTime performed: 1600UA NITRITE DIPSTICK [id number] 16:26:00 Test Item Value Reference Range Interpretation Comments UA NITRITE DIPSTICK POC (test code = Negative Negative NITUP) UA GLU: NEGATIVEKET UA NEGATIVEPH UA 8.0UA NIT NegativePROT UA 15 (TRACE)BL UA NEGATIVEUA KOKO NegativeTime performed: 1600UA LEUKOCYTE ESTERASE [id number] 16:26:00 Test Item Value Reference Range Interpretation Comments UA LEUKOCYTE ESTERASE POC (test code NEGATIVE NEGATIVE = LEUUPOC) UA GLU: NEGATIVEKET UA NEGATIVEPH UA 8.0UA NIT NegativePROT UA 15 (TRACE)BL UA NEGATIVEUA KOKO NegativeTime performed: 1600
--- NOTE | 2020-11-22 14:21 | ER ---
Nurse's Notes [facility] Name: Sharon Bose Age: 30 yrs Sex: Female : 1990 Arrival Date: 11/22/2020 Time: 11:56 Bed 15 Private MD: Diagnosis: Coronavirus infection, unspecified Presentation: 11/22 12:03 Chief complaint: Patient states: Feeling sick since Last week. Fever, cough, ca1 congestion, N/V/D, decrease appetite, fatigue, muscle aches. SOB x 4 days. Coronavirus screen: Client denies travel out of the [place] in the last 14 days. At this time, the client does not indicate any symptoms associated with coronavirus-19. Ebola Screen: Patient negative for fever greater than or equal to 101.5 degrees Fahrenheit, and additional compatible Ebola Virus Disease symptoms Patient denies exposure to infectious person. Patient denies travel to an Ebola-affected area in the 21 days before illness onset. No symptoms or risks identified at this time. Initial Sepsis Screen: Does the patient meet any 2 criteria? No. Patient's initial sepsis screen is negative. Does the patient have a suspected source of infection? No. Patient's initial sepsis screen is negative. Risk Assessment: Do you want to hurt yourself or someone else? Patient reports no desire to harm self or others. Onset of symptoms was November 16, 2020. 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 Flu vaccine is not up to date. - Social history:: Smoking status: Patient denies any tobacco usage or history of. Screenin:13 Abuse screen: Denies threats or abuse. Denies injuries from another. Nutritional ph screening: No deficits noted. Tuberculosis screening: No symptoms or risk factors identified. Fall Risk None identified. Assessment: 13:00 General: Appears in no apparent distress. comfortable, obese, well groomed, Behavior is ph calm, cooperative, appropriate for age, Reports fever for > 3 days. Pain: Complains of pain in body aches. Neuro: Level of Consciousness is awake, alert, obeys commands, Oriented to person, place, time, situation. Cardiovascular: Capillary refill < 3 seconds in bilateral fingers Patient's skin is warm and dry. Respiratory: Reports shortness of breath at rest cough that is Airway is patent Respiratory effort is even, unlabored. GI: Abdomen is non-distended, Reports diarrhea, nausea, vomiting. Derm: Skin is intact, is healthy with good turgor, Skin is pink, warm \T\ dry. Musculoskeletal: Circulation, motion, and sensation intact. Range of motion: intact in all extremities. Vital Signs: 12:03 BP 136 / 89; Pulse 109; Resp 18 S; Temp 97(TE); Pulse Ox 98% on R/A; Weight 122.47 kg ca1 (R); Height 5 ft. 3 in. (160.02 cm) (R); Pain 6/10; 14:20 BP 112 / 58; Pulse 65; Resp 20; Pulse Ox 97% on R/A; ph 12:03 Body Mass Index 47.83 (122.47 kg, 160.02 cm) ca1 ED Course: 11:56 Patient arrived in ED. mr 12:05 Triage completed. ca1 12:06 Arm band placed on right wrist. ca1 12:09 Flu Sent. ca1 12:09 Strep Sent. ca1 12:10 Cyril Astorga PA is PHCP. [facility] 12:10 Moises Alexander MD is Attending Physician. [facility] 12:18 Alexus De Los Santos, RN is Primary Nurse. ph 14:13 Patient has correct armband on for positive identification. Bed in low position. Call ph light in reach. Side rails up X 1. Pulse ox on. NIBP on. Door closed. Noise minimized. Warm blanket given. 14:18 No provider procedures requiring assistance completed. Patient did not have IV access ph during this emergency room visit. Administered Medications: 14:13 Drug: Decadron (dexamethasone) 10 mg Route: IM; Site: right deltoid; ph 14:49 Follow up: Response: No adverse reaction ph Outcome: 14:20 Discharge ordered by . apolinar 14:49 Discharged to home ambulatory. ph 14:49 Condition: good 14:49 Discharge instructions given to patient, Instructed on discharge instructions, follow up and referral plans. medication usage, Demonstrated understanding of instructions, follow-up care, medications, Prescriptions given X 1. 14:50 Patient left the ED. ph Signatures: Cyril Astorga PA PA jmm Rivera, Lesly mr Alexus De Los Santos, RN RN ph Isamar Whitney RN RN ca1 Corrections: (The following items were deleted from the chart) 12:48 12:09 CORONAVIRUS+[email or web address] drawn and sent. ca1 EDMS
--- NOTE | 2020-11-22 14:21 | EDPHYS ---
Physician Documentation [facility] Name: Sharon Bose Age: 30 yrs Sex: Female : 1990 Arrival Date: 11/22/2020 Time: 11:56 Bed 15 Private MD: ED Physician Moises Alexander HPI: 11/22 12:36 This 30 yrs old Female presents to ER via Ambulatory with complaints of jmm Cough, Shortness Of Breath. 12:36 The patient or guardian reports cough. Onset: The symptoms/episode began/occurred jmm gradually, 5 day(s) ago. Modifying factors: The symptoms are alleviated by nothing, the symptoms are aggravated by nothing. Associated signs and symptoms: Pertinent positives: fever, Pertinent negatives: sore throat. 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 Flu vaccine is not up to date. - Social history:: Smoking status: Patient denies any tobacco usage or history of. ROS: 12:36 Constitutional: Positive for body aches. jmm 12:36 ENT: Negative for 12:36 All other systems are negative. Exam: 12:36 Constitutional: This is a well developed, well nourished patient who is awake, alert, jmm and in no acute distress. Head/Face: atraumatic. Eyes: EOMI, no conjunctival erythema appreciated ENT: Moist Mucus Membranes Neck: Trachea midline, Supple Chest/axilla: Normal chest wall appearance and motion. Cardiovascular: Regular rate and rhythm. No edema appreciated 12:36 Back: Normal ROM Skin: General appearance color normal MS/ Extremity: Moves all extremities, no obvious deformities appreciated, no edema noted to the lower extremities Neuro: Awake and alert, normal gait Psych: Behavior is normal, Mood is normal, Patient is cooperative and pleasant 12:36 Respiratory: the patient does not display signs of respiratory distress, Respirations: normal, Breath sounds: wheezing: that is mild, is heard in the left posterior upper lobe. Vital Signs: 12:03 BP 136 / 89; Pulse 109; Resp 18 S; Temp 97(TE); Pulse Ox 98% on R/A; Weight 122.47 kg ca1 (R); Height 5 ft. 3 in. (160.02 cm) (R); Pain 6/10; 14:20 BP 112 / 58; Pulse 65; Resp 20; Pulse Ox 97% on R/A; ph 12:03 Body Mass Index 47.83 (122.47 kg, 160.02 cm) ca1 MDM: 12:39 Patient medically screened. [facility] 13:37 Data reviewed: vital signs, nurses notes. Counseling: I had a detailed discussion with apolinar the patient and/or guardian regarding: the historical points, exam findings, and any diagnostic results supporting the discharge/admit diagnosis, the need for outpatient follow up, to return to the emergency department if symptoms worsen or persist or if there are any questions or concerns that arise at home. 14:19 ED course: Is alert nontoxic in appearance in the emerged bar. Oxygen saturation is [facility] within normal limits in the ED. Patient advised follow-up primary care provider. Otherwise given strict return precautions. Patient understood and agrees with plan of care.. 11/22 12:07 Order name: Flu; Complete Time: 13:32 ca1 11/22 12:07 Order name: Strep; Complete Time: 13:32 ca1 11/22 13:29 Order name: Throat Culture EDMS 11/22 14:01 Order name: SARS-COV-2 RT PCR; Complete Time: 14:05 EDMS Administered Medications: 14:13 Drug: Decadron (dexamethasone) 10 mg Route: IM; Site: right deltoid; ph 14:49 Follow up: Response: No adverse reaction ph Disposition Summary: 11/22/20 14:20 Discharge Ordered Location: Home [facility] Condition: Stable [facility] Diagnosis - Coronavirus infection, unspecified [facility] Followup: [facility] - With: Private Physician - When: 2 - 3 days - Reason: Recheck today's complaints, Continuance of care, Re-evaluation by your physician Discharge Instructions: - Discharge Summary Sheet apolinar - COVID-19 [facility] Forms: - Medication Reconciliation Form [facility] - Thank You Letter [facility] - Antibiotic Education [facility] - Prescription Opioid Use [facility] Prescriptions: - azithromycin 250 mg Oral tablet - take 2 tablet by ORAL route once daily for 1 day then 1 tablet (250 mg) by oral [facility] route once daily for 4 days; 1 packet; Refills: 0, Product Selection Permitted Signatures: Dispatcher [employer] EDMS Cyril Astorga PA PA jmm Hall, Patricia RN RN ph Isamar Whitney RN RN ca1 Corrections: (The following items were deleted from the chart) 12:48 12:07 CORONAVIRUS+ ordered. EDMS EDMS
[2020-11-22] MEDS ORDERED: dexAMETHasone 10 MG/ML VIAL ONE (14:30)
[2020-11-22 14:55] VITALS: TEMP 97
[2020-11-22 14:57] VITALS: BP 112/58; O2SAT 97
== END 2020-11-22 14:50 | disposition home or self-care (01) ==
LOC: ER 11:49
DX: U07.1 COVID-19 (principal)
CPT/HCPCS: 87070; 87081; 87804 ×2; 96372; 99284; U0003; J1100

== ENCOUNTER 2021-01-16 18:04 | Emergency (ER) | payer OTHER ==
--- OUTSIDE RECORDS SUMMARY | 2021-01-16 18:08 | XMS REPORT | Continuity of Care Document ---
:1990 Author Organization [facility] t Address [address] [place] [address] Care Team Providers Name Role Phone Unavailable Unavailable Unavailable Payers Payer Name Policy Type Policy Number Effective Date Expiration Date S ource Problems This patient has no known problems. Allergies, Adverse Reactions, Alerts Allergy Allergy Status Severity Reaction(s) Onset Inactive Treating Comm ents Source Name Type Date Date Clinician No Known DA Active U [facility] Allergie 12-29 Clear s 00:00: Bran 00 [facility] Medications This patient has no known medications. [...] COMMENTS: day 1HIV 1 2 COMBO AG/AB [id number] 00:11:00 Test Item Value Reference Range Interpretation Comments HIV 1 2 COMBO AB/AG NON NONREACTIVE NONREACTIV E HIV AG/AB SCREEN REACTIVE P24 ANTIGEN (test code = NONREACTIVE [id number]) NONREACTIVE HIV 1&2 ANTIBODY NONREACTIVE THE HIV-1 P24 TEST HELPS DISTINGUISH ACU TE HIV-1INFECTIONF ROM ESTABLISHED HIV -1 INFECTION WHEN THE SPECIMEN ISPOSI TIVE FOR HIV-1 P24 A NTIGEN. HIV-1 P24 ANTIG EN IS HIGHEST IN THE FIRST FEW WEEKS AFTERINFECTION URINALYSIS [id number] 21:03:00 Test Item Value Reference Range Interpretation [...] #/LPF NONE (test code = AMORU) URINALYSIS [id number] 20:58:00 Test Item Value Reference Range Interpretation [...] code = per HPF NONE BACU) URINALYSIS [id number] 20:58:00 Test Item Value Reference Range Interpretation [...] per HPF NONE BACU) AG HEPAT B [id number] 19:50:00 Test Item Value Reference Range Interpretation Comments AG HEPAT B SURF (test code Nonreactive Index Nonreactive = HBSAG) AB [id number] 19:50:00 Test Item Value Reference Range Interpretation Comments AB TREPONEMA (test code = Nonreactive Index NonReactive TREPAB) COMPREHENSIVE METABOLIC [id number] 19:23:00 Test Item Value Reference Range Interpretation [...] MDRD formula.Chronic kidney disease is defined as [facility] kidney damageor GFR <60 mL/min/1.73 m2 [...] due ALKP) to change in reagent. URIC [id number] 19:23:00 Test Item Value Reference Range Interpretation Comments URIC ACID (test code = URIC) 3.5 mg/dL 2.6-7.2 N COMPREHENSIVE METABOLIC [id number] 19:15:00 Test Item Value Reference Range Interpretation [...] (test IUnit/L 45-117 code = ALKP) URIC [id number] 19:15:00 Test Item Value Reference Range Interpretation Comments URIC ACID (test code = URIC) mg/dL 2.6-7.2 CBC W/AUTO [id number] 19:02:00 Test Item Value Reference Range Interpretation [...] K/mm3 0.0-0.1 N NRBC#) UA GLUCOSE DIPSTIC [id number] 14:31:00 Test Item Value Reference Range Interpretation Comments UA GLUCOSE DIPSTIC POC (test code = Negative Negative GLUUP) UA GLU: NEGATIVEKET UA NEGATIVEPH UA 7.0UA NIT NegativePROT UA NEGATIVEBL UA NEGATIVEUA KOKO NegativeTime performed: 1400UA KETONE DIPSTICK [id number] 14:31:00 Test Item Value Reference Range Interpretation Comments UA KETONE DIPSTICK POC (test code = Negative KETUP) UA GLU: NEGATIVEKET UA NEGATIVEPH UA 7.0UA NIT NegativePROT UA NEGATIVEBL UA NEGATIVEUA KOKO NegativeTime performed: 1400UA BLOOD DIPSTIC [id number] 14:31:00 Test Item Value Reference Range Interpretation Comments UA BLOOD DIPSTIC POC (test code = BLUP) NEGATIVE UA GLU: NEGATIVEKET UA NEGATIVEPH UA 7.0UA NIT NegativePROT UA NEGATIVEBL UA NEGATIVEUA KOKO NegativeTime performed: 1400UA PH DIPSTIC [id number] 14:31:00 Test Item Value Reference Range Interpretation Comments UA PH DIPSTIC POC (test code = PHUP) 5-8 UA GLU: NEGATIVEKET UA NEGATIVEPH UA 7.0UA NIT NegativePROT UA NEGATIVEBL UA NEGATIVEUA KOKO NegativeTime performed: 1400UA PROTEIN DIPSTICK [id number] 14:31:00 Test Item Value Reference Range Interpretation Comments UA PROTEIN DIPSTICK POC (test code = Neg -15 DPROUP) UA GLU: NEGATIVEKET UA NEGATIVEPH UA 7.0UA NIT NegativePROT UA NEGATIVEBL UA NEGATIVEUA KOKO NegativeTime performed: 1400UA NITRITE DIPSTICK [id number] 14:31:00 Test Item Value Reference Range Interpretation Comments UA NITRITE DIPSTICK POC (test code = Negative NITUP) UA GLU: NEGATIVEKET UA NEGATIVEPH UA 7.0UA NIT NegativePROT UA NEGATIVEBL UA NEGATIVEUA KOKO NegativeTime performed: 1400UA LEUKOCYTE ESTERASE [id number] 14:31:00 Test Item Value Reference Range Interpretation Comments UA LEUKOCYTE ESTERASE POC (test code = NEGATIVE LEUUPOC) UA GLU: NEGATIVEKET UA NEGATIVEPH UA 7.0UA NIT NegativePROT UA NEGATIVEBL UA NEGATIVEUA KOKO NegativeTime performed: 1400UA GLUCOSE DIPSTIC [id number] 14:31:00 Test Item Value Reference Range Interpretation Comments UA GLUCOSE DIPSTIC POC (test code = Negative Negative GLUUP) UA GLU: NEGATIVEKET UA NEGATIVEPH UA 7.0UA NIT NegativePROT UA NEGATIVEBL UA NEGATIVEUA KOKO NegativeTime performed: 1400UA KETONE DIPSTICK [id number] 14:31:00 Test Item Value Reference Range Interpretation Comments UA KETONE DIPSTICK POC (test code = Negative Negative KETUP) UA GLU: NEGATIVEKET UA NEGATIVEPH UA 7.0UA NIT NegativePROT UA NEGATIVEBL UA NEGATIVEUA KOKO NegativeTime performed: 1400UA BLOOD DIPSTIC [id number] 14:31:00 Test Item Value Reference Range Interpretation Comments UA BLOOD DIPSTIC POC (test code = BLUP) NEGATIVE UA GLU: NEGATIVEKET UA NEGATIVEPH UA 7.0UA NIT NegativePROT UA NEGATIVEBL UA NEGATIVEUA KOKO NegativeTime performed: 1400UA PH DIPSTIC [id number] 14:31:00 Test Item Value Reference Range Interpretation Comments UA PH DIPSTIC POC (test code = PHUP) 5-8 UA GLU: NEGATIVEKET UA NEGATIVEPH UA 7.0UA NIT NegativePROT UA NEGATIVEBL UA NEGATIVEUA KOKO NegativeTime performed: 1400UA PROTEIN DIPSTICK [id number] 14:31:00 Test Item Value Reference Range Interpretation Comments UA PROTEIN DIPSTICK POC (test code = Neg -15 DPROUP) UA GLU: NEGATIVEKET UA NEGATIVEPH UA 7.0UA NIT NegativePROT UA NEGATIVEBL UA NEGATIVEUA KOKO NegativeTime performed: 1400UA NITRITE DIPSTICK [id number] 14:31:00 Test Item Value Reference Range Interpretation Comments UA NITRITE DIPSTICK POC (test code = Negative NITUP) UA GLU: NEGATIVEKET UA NEGATIVEPH UA 7.0UA NIT NegativePROT UA NEGATIVEBL UA NEGATIVEUA KOKO NegativeTime performed: 1400UA LEUKOCYTE ESTERASE [id number] 14:31:00 Test Item Value Reference Range Interpretation Comments UA LEUKOCYTE ESTERASE POC (test code = NEGATIVE LEUUPOC) UA GLU: NEGATIVEKET UA NEGATIVEPH UA 7.0UA NIT NegativePROT UA NEGATIVEBL UA NEGATIVEUA KOKO NegativeTime performed: 1400UA GLUCOSE DIPSTIC [id number] 14:31:00 Test Item Value Reference Range Interpretation Comments UA GLUCOSE DIPSTIC POC (test code = Negative Negative GLUUP) UA GLU: NEGATIVEKET UA NEGATIVEPH UA 7.0UA NIT NegativePROT UA NEGATIVEBL UA NEGATIVEUA KOKO NegativeTime performed: 1400UA KETONE DIPSTICK [id number] 14:31:00 Test Item Value Reference Range Interpretation Comments UA KETONE DIPSTICK POC (test code = Negative Negative KETUP) UA GLU: NEGATIVEKET UA NEGATIVEPH UA 7.0UA NIT NegativePROT UA NEGATIVEBL UA NEGATIVEUA KOKO NegativeTime performed: 1400UA BLOOD DIPSTIC [id number] 14:31:00 Test Item Value Reference Range Interpretation Comments UA BLOOD DIPSTIC POC (test code = Negative NEGATIVE BLUP) UA GLU: NEGATIVEKET UA NEGATIVEPH UA 7.0UA NIT NegativePROT UA NEGATIVEBL UA NEGATIVEUA KOKO NegativeTime performed: 1400UA PH DIPSTIC [id number] 14:31:00 Test Item Value Reference Range Interpretation Comments UA PH DIPSTIC POC (test code = PHUP) 5-8 UA GLU: NEGATIVEKET UA NEGATIVEPH UA 7.0UA NIT NegativePROT UA NEGATIVEBL UA NEGATIVEUA KOKO NegativeTime performed: 1400UA PROTEIN DIPSTICK [id number] 14:31:00 Test Item Value Reference Range Interpretation Comments UA PROTEIN DIPSTICK POC (test code = Neg -15 DPROUP) UA GLU: NEGATIVEKET UA NEGATIVEPH UA 7.0UA NIT NegativePROT UA NEGATIVEBL UA NEGATIVEUA KOKO NegativeTime performed: 1400UA NITRITE DIPSTICK [id number] 14:31:00 Test Item Value Reference Range Interpretation Comments UA NITRITE DIPSTICK POC (test code = Negative NITUP) UA GLU: NEGATIVEKET UA NEGATIVEPH UA 7.0UA NIT NegativePROT UA NEGATIVEBL UA NEGATIVEUA KOKO NegativeTime performed: 1400UA LEUKOCYTE ESTERASE [id number] 14:31:00 Test Item Value Reference Range Interpretation Comments UA LEUKOCYTE ESTERASE POC (test code = NEGATIVE LEUUPOC) UA GLU: NEGATIVEKET UA NEGATIVEPH UA 7.0UA NIT NegativePROT UA NEGATIVEBL UA NEGATIVEUA KOKO NegativeTime performed: 1400UA GLUCOSE DIPSTIC [id number] 14:31:00 Test Item Value Reference Range Interpretation Comments UA GLUCOSE DIPSTIC POC (test code = Negative Negative GLUUP) UA GLU: NEGATIVEKET UA NEGATIVEPH UA 7.0UA NIT NegativePROT UA NEGATIVEBL UA NEGATIVEUA KOKO NegativeTime performed: 1400UA KETONE DIPSTICK [id number] 14:31:00 Test Item Value Reference Range Interpretation Comments UA KETONE DIPSTICK POC (test code = Negative Negative KETUP) UA GLU: NEGATIVEKET UA NEGATIVEPH UA 7.0UA NIT NegativePROT UA NEGATIVEBL UA NEGATIVEUA KOKO NegativeTime performed: 1400UA BLOOD DIPSTIC [id number] 14:31:00 Test Item Value Reference Range Interpretation Comments UA BLOOD DIPSTIC POC (test code = Negative NEGATIVE BLUP) UA GLU: NEGATIVEKET UA NEGATIVEPH UA 7.0UA NIT NegativePROT UA NEGATIVEBL UA NEGATIVEUA KOKO NegativeTime performed: 1400UA PH DIPSTIC [id number] 14:31:00 Test Item Value Reference Range Interpretation Comments UA PH DIPSTIC POC (test code = PHUP) 7 5-8 N UA GLU: NEGATIVEKET UA NEGATIVEPH UA 7.0UA NIT NegativePROT UA NEGATIVEBL UA NEGATIVEUA KOKO NegativeTime performed: 1400UA PROTEIN DIPSTICK [id number] 14:31:00 Test Item Value Reference Range Interpretation Comments UA PROTEIN DIPSTICK POC (test code = Neg -15 DPROUP) UA GLU: NEGATIVEKET UA NEGATIVEPH UA 7.0UA NIT NegativePROT UA NEGATIVEBL UA NEGATIVEUA KOKO NegativeTime performed: 1400UA NITRITE DIPSTICK [id number] 14:31:00 Test Item Value Reference Range Interpretation Comments UA NITRITE DIPSTICK POC (test code = Negative NITUP) UA GLU: NEGATIVEKET UA NEGATIVEPH UA 7.0UA NIT NegativePROT UA NEGATIVEBL UA NEGATIVEUA KOKO NegativeTime performed: 1400UA LEUKOCYTE ESTERASE [id number] 14:31:00 Test Item Value Reference Range Interpretation Comments UA LEUKOCYTE ESTERASE POC (test code = NEGATIVE LEUUPOC) UA GLU: NEGATIVEKET UA NEGATIVEPH UA 7.0UA NIT NegativePROT UA NEGATIVEBL UA NEGATIVEUA KOKO NegativeTime performed: 1400UA GLUCOSE DIPSTIC [id number] 14:31:00 Test Item Value Reference Range Interpretation Comments UA GLUCOSE DIPSTIC POC (test code = Negative Negative GLUUP) UA GLU: NEGATIVEKET UA NEGATIVEPH UA 7.0UA NIT NegativePROT UA NEGATIVEBL UA NEGATIVEUA KOKO NegativeTime performed: 1400UA KETONE DIPSTICK [id number] 14:31:00 Test Item Value Reference Range Interpretation Comments UA KETONE DIPSTICK POC (test code = Negative Negative KETUP) UA GLU: NEGATIVEKET UA NEGATIVEPH UA 7.0UA NIT NegativePROT UA NEGATIVEBL UA NEGATIVEUA KOKO NegativeTime performed: 1400UA BLOOD DIPSTIC [id number] 14:31:00 Test Item Value Reference Range Interpretation Comments UA BLOOD DIPSTIC POC (test code = Negative NEGATIVE BLUP) UA GLU: NEGATIVEKET UA NEGATIVEPH UA 7.0UA NIT NegativePROT UA NEGATIVEBL UA NEGATIVEUA KOKO NegativeTime performed: 1400UA PH DIPSTIC [id number] 14:31:00 Test Item Value Reference Range Interpretation Comments UA PH DIPSTIC POC (test code = PHUP) 7 5-8 N UA GLU: NEGATIVEKET UA NEGATIVEPH UA 7.0UA NIT NegativePROT UA NEGATIVEBL UA NEGATIVEUA KOKO NegativeTime performed: 1400UA PROTEIN DIPSTICK [id number] 14:31:00 Test Item Value Reference Range Interpretation Comments UA PROTEIN DIPSTICK POC (test code = Negative Neg -15 DPROUP) UA GLU: NEGATIVEKET UA NEGATIVEPH UA 7.0UA NIT NegativePROT UA NEGATIVEBL UA NEGATIVEUA KOKO NegativeTime performed: 1400UA NITRITE DIPSTICK [id number] 14:31:00 Test Item Value Reference Range Interpretation Comments UA NITRITE DIPSTICK POC (test code = Negative NITUP) UA GLU: NEGATIVEKET UA NEGATIVEPH UA 7.0UA NIT NegativePROT UA NEGATIVEBL UA NEGATIVEUA KOKO NegativeTime performed: 1400UA LEUKOCYTE ESTERASE [id number] 14:31:00 Test Item Value Reference Range Interpretation Comments UA LEUKOCYTE ESTERASE POC (test code = NEGATIVE LEUUPOC) UA GLU: NEGATIVEKET UA NEGATIVEPH UA 7.0UA NIT NegativePROT UA NEGATIVEBL UA NEGATIVEUA KOKO NegativeTime performed: 1400UA GLUCOSE DIPSTIC [id number] 14:31:00 Test Item Value Reference Range Interpretation Comments UA GLUCOSE DIPSTIC POC (test code = Negative Negative GLUUP) UA GLU: NEGATIVEKET UA NEGATIVEPH UA 7.0UA NIT NegativePROT UA NEGATIVEBL UA NEGATIVEUA KOKO NegativeTime performed: 1400UA KETONE DIPSTICK [id number] 14:31:00 Test Item Value Reference Range Interpretation Comments UA KETONE DIPSTICK POC (test code = Negative Negative KETUP) UA GLU: NEGATIVEKET UA NEGATIVEPH UA 7.0UA NIT NegativePROT UA NEGATIVEBL UA NEGATIVEUA KOKO NegativeTime performed: 1400UA BLOOD DIPSTIC [id number] 14:31:00 Test Item Value Reference Range Interpretation Comments UA BLOOD DIPSTIC POC (test code = Negative NEGATIVE BLUP) UA GLU: NEGATIVEKET UA NEGATIVEPH UA 7.0UA NIT NegativePROT UA NEGATIVEBL UA NEGATIVEUA KOKO NegativeTime performed: 1400UA PH DIPSTIC [id number] 14:31:00 Test Item Value Reference Range Interpretation Comments UA PH DIPSTIC POC (test code = PHUP) 7 5-8 N UA GLU: NEGATIVEKET UA NEGATIVEPH UA 7.0UA NIT NegativePROT UA NEGATIVEBL UA NEGATIVEUA KOKO NegativeTime performed: 1400UA PROTEIN DIPSTICK [id number] 14:31:00 Test Item Value Reference Range Interpretation Comments UA PROTEIN DIPSTICK POC (test code = Negative Neg -15 DPROUP) UA GLU: NEGATIVEKET UA NEGATIVEPH UA 7.0UA NIT NegativePROT UA NEGATIVEBL UA NEGATIVEUA KOKO NegativeTime performed: 1400UA NITRITE DIPSTICK [id number] 14:31:00 Test Item Value Reference Range Interpretation Comments UA NITRITE DIPSTICK POC (test code = Negative Negative NITUP) UA GLU: NEGATIVEKET UA NEGATIVEPH UA 7.0UA NIT NegativePROT UA NEGATIVEBL UA NEGATIVEUA KOKO NegativeTime performed: 1400UA LEUKOCYTE ESTERASE [id number] 14:31:00 Test Item Value Reference Range Interpretation Comments UA LEUKOCYTE ESTERASE POC (test code = NEGATIVE LEUUPOC) UA GLU: NEGATIVEKET UA NEGATIVEPH UA 7.0UA NIT NegativePROT UA NEGATIVEBL UA NEGATIVEUA KOKO NegativeTime performed: 1400UA GLUCOSE DIPSTIC [id number] 14:31:00 Test Item Value Reference Range Interpretation Comments UA GLUCOSE DIPSTIC POC (test code = Negative Negative GLUUP) UA GLU: NEGATIVEKET UA NEGATIVEPH UA 7.0UA NIT NegativePROT UA NEGATIVEBL UA NEGATIVEUA KOKO NegativeTime performed: 1400UA KETONE DIPSTICK [id number] 14:31:00 Test Item Value Reference Range Interpretation Comments UA KETONE DIPSTICK POC (test code = Negative Negative KETUP) UA GLU: NEGATIVEKET UA NEGATIVEPH UA 7.0UA NIT NegativePROT UA NEGATIVEBL UA NEGATIVEUA KOKO NegativeTime performed: 1400UA BLOOD DIPSTIC [id number] 14:31:00 Test Item Value Reference Range Interpretation Comments UA BLOOD DIPSTIC POC (test code = Negative NEGATIVE BLUP) UA GLU: NEGATIVEKET UA NEGATIVEPH UA 7.0UA NIT NegativePROT UA NEGATIVEBL UA NEGATIVEUA KOKO NegativeTime performed: 1400UA PH DIPSTIC [id number] 14:31:00 Test Item Value Reference Range Interpretation Comments UA PH DIPSTIC POC (test code = PHUP) 7 5-8 N UA GLU: NEGATIVEKET UA NEGATIVEPH UA 7.0UA NIT NegativePROT UA NEGATIVEBL UA NEGATIVEUA KOKO NegativeTime performed: 1400UA PROTEIN DIPSTICK [id number] 14:31:00 Test Item Value Reference Range Interpretation Comments UA PROTEIN DIPSTICK POC (test code = Negative Neg -15 DPROUP) UA GLU: NEGATIVEKET UA NEGATIVEPH UA 7.0UA NIT NegativePROT UA NEGATIVEBL UA NEGATIVEUA KOKO NegativeTime performed: 1400UA NITRITE DIPSTICK [id number] 14:31:00 Test Item Value Reference Range Interpretation Comments UA NITRITE DIPSTICK POC (test code = Negative Negative NITUP) UA GLU: NEGATIVEKET UA NEGATIVEPH UA 7.0UA NIT NegativePROT UA NEGATIVEBL UA NEGATIVEUA KOKO NegativeTime performed: 1400UA LEUKOCYTE ESTERASE [id number] 14:31:00 Test Item Value Reference Range Interpretation Comments UA LEUKOCYTE ESTERASE POC (test code NEGATIVE NEGATIVE = LEUUPOC) UA GLU: NEGATIVEKET UA NEGATIVEPH UA 7.0UA NIT NegativePROT UA NEGATIVEBL UA NEGATIVEUA KOKO NegativeTime performed: 1400UA GLUCOSE DIPSTIC [id number] 16:26:00 Test Item Value Reference Range Interpretation Comments UA GLUCOSE DIPSTIC POC (test code = Negative Negative GLUUP) UA GLU: NEGATIVEKET UA NEGATIVEPH UA 8.0UA NIT NegativePROT UA 15 (TRACE)BL UA NEGATIVEUA KOKO NegativeTime performed: 1600UA KETONE DIPSTICK [id number] 16:26:00 Test Item Value Reference Range Interpretation Comments UA KETONE DIPSTICK POC (test code = Negative KETUP) UA GLU: NEGATIVEKET UA NEGATIVEPH UA 8.0UA NIT NegativePROT UA 15 (TRACE)BL UA NEGATIVEUA KOKO NegativeTime performed: 1600UA BLOOD DIPSTIC [id number] 16:26:00 Test Item Value Reference Range Interpretation Comments UA BLOOD DIPSTIC POC (test code = BLUP) NEGATIVE UA GLU: NEGATIVEKET UA NEGATIVEPH UA 8.0UA NIT NegativePROT UA 15 (TRACE)BL UA NEGATIVEUA KOKO NegativeTime performed: 1600UA PH DIPSTIC [id number] 16:26:00 Test Item Value Reference Range Interpretation Comments UA PH DIPSTIC POC (test code = PHUP) 5-8 UA GLU: NEGATIVEKET UA NEGATIVEPH UA 8.0UA NIT NegativePROT UA 15 (TRACE)BL UA NEGATIVEUA KOKO NegativeTime performed: 1600UA PROTEIN DIPSTICK [id number] 16:26:00 Test Item Value Reference Range Interpretation Comments UA PROTEIN DIPSTICK POC (test code = Neg -15 DPROUP) UA GLU: NEGATIVEKET UA NEGATIVEPH UA 8.0UA NIT NegativePROT UA 15 (TRACE)BL UA NEGATIVEUA KOKO NegativeTime performed: 1600UA NITRITE DIPSTICK [id number] 16:26:00 Test Item Value Reference Range Interpretation Comments UA NITRITE DIPSTICK POC (test code = Negative NITUP) UA GLU: NEGATIVEKET UA NEGATIVEPH UA 8.0UA NIT NegativePROT UA 15 (TRACE)BL UA NEGATIVEUA KOKO NegativeTime performed: 1600UA LEUKOCYTE ESTERASE [id number] 16:26:00 Test Item Value Reference Range Interpretation Comments UA LEUKOCYTE ESTERASE POC (test code = NEGATIVE LEUUPOC) UA GLU: NEGATIVEKET UA NEGATIVEPH UA 8.0UA NIT NegativePROT UA 15 (TRACE)BL UA NEGATIVEUA KOKO NegativeTime performed: 1600UA GLUCOSE DIPSTIC [id number] 16:26:00 Test Item Value Reference Range Interpretation Comments UA GLUCOSE DIPSTIC POC (test code = Negative Negative GLUUP) UA GLU: NEGATIVEKET UA NEGATIVEPH UA 8.0UA NIT NegativePROT UA 15 (TRACE)BL UA NEGATIVEUA KOKO NegativeTime performed: 1600UA KETONE DIPSTICK [id number] 16:26:00 Test Item Value Reference Range Interpretation Comments UA KETONE DIPSTICK POC (test code = Negative Negative KETUP) UA GLU: NEGATIVEKET UA NEGATIVEPH UA 8.0UA NIT NegativePROT UA 15 (TRACE)BL UA NEGATIVEUA KOKO NegativeTime performed: 1600UA BLOOD DIPSTIC [id number] 16:26:00 Test Item Value Reference Range Interpretation Comments UA BLOOD DIPSTIC POC (test code = BLUP) NEGATIVE UA GLU: NEGATIVEKET UA NEGATIVEPH UA 8.0UA NIT NegativePROT UA 15 (TRACE)BL UA NEGATIVEUA KOKO NegativeTime performed: 1600UA PH DIPSTIC [id number] 16:26:00 Test Item Value Reference Range Interpretation Comments UA PH DIPSTIC POC (test code = PHUP) 5-8 UA GLU: NEGATIVEKET UA NEGATIVEPH UA 8.0UA NIT NegativePROT UA 15 (TRACE)BL UA NEGATIVEUA KOKO NegativeTime performed: 1600UA PROTEIN DIPSTICK [id number] 16:26:00 Test Item Value Reference Range Interpretation Comments UA PROTEIN DIPSTICK POC (test code = Neg -15 DPROUP) UA GLU: NEGATIVEKET UA NEGATIVEPH UA 8.0UA NIT NegativePROT UA 15 (TRACE)BL UA NEGATIVEUA KOKO NegativeTime performed: 1600UA NITRITE DIPSTICK [id number] 16:26:00 Test Item Value Reference Range Interpretation Comments UA NITRITE DIPSTICK POC (test code = Negative NITUP) UA GLU: NEGATIVEKET UA NEGATIVEPH UA 8.0UA NIT NegativePROT UA 15 (TRACE)BL UA NEGATIVEUA KOKO NegativeTime performed: 1600UA LEUKOCYTE ESTERASE [id number] 16:26:00 Test Item Value Reference Range Interpretation Comments UA LEUKOCYTE ESTERASE POC (test code = NEGATIVE LEUUPOC) UA GLU: NEGATIVEKET UA NEGATIVEPH UA 8.0UA NIT NegativePROT UA 15 (TRACE)BL UA NEGATIVEUA KOKO NegativeTime performed: 1600UA GLUCOSE DIPSTIC [id number] 16:26:00 Test Item Value Reference Range Interpretation Comments UA GLUCOSE DIPSTIC POC (test code = Negative Negative GLUUP) UA GLU: NEGATIVEKET UA NEGATIVEPH UA 8.0UA NIT NegativePROT UA 15 (TRACE)BL UA NEGATIVEUA KOKO NegativeTime performed: 1600UA KETONE DIPSTICK [id number] 16:26:00 Test Item Value Reference Range Interpretation Comments UA KETONE DIPSTICK POC (test code = Negative Negative KETUP) UA GLU: NEGATIVEKET UA NEGATIVEPH UA 8.0UA NIT NegativePROT UA 15 (TRACE)BL UA NEGATIVEUA KKOO NegativeTime performed: 1600UA BLOOD DIPSTIC [id number] 16:26:00 Test Item Value Reference Range Interpretation Comments UA BLOOD DIPSTIC POC (test code = Negative NEGATIVE BLUP) UA GLU: NEGATIVEKET UA NEGATIVEPH UA 8.0UA NIT NegativePROT UA 15 (TRACE)BL UA NEGATIVEUA KOKO NegativeTime performed: 1600UA PH DIPSTIC [id number] 16:26:00 Test Item Value Reference Range Interpretation Comments UA PH DIPSTIC POC (test code = PHUP) 5-8 UA GLU: NEGATIVEKET UA NEGATIVEPH UA 8.0UA NIT NegativePROT UA 15 (TRACE)BL UA NEGATIVEUA KOKO NegativeTime performed: 1600UA PROTEIN DIPSTICK [id number] 16:26:00 Test Item Value Reference Range Interpretation Comments UA PROTEIN DIPSTICK POC (test code = Neg -15 DPROUP) UA GLU: NEGATIVEKET UA NEGATIVEPH UA 8.0UA NIT NegativePROT UA 15 (TRACE)BL UA NEGATIVEUA KOKO NegativeTime performed: 1600UA NITRITE DIPSTICK [id number] 16:26:00 Test Item Value Reference Range Interpretation Comments UA NITRITE DIPSTICK POC (test code = Negative NITUP) UA GLU: NEGATIVEKET UA NEGATIVEPH UA 8.0UA NIT NegativePROT UA 15 (TRACE)BL UA NEGATIVEUA KOKO NegativeTime performed: 1600UA LEUKOCYTE ESTERASE [id number] 16:26:00 Test Item Value Reference Range Interpretation Comments UA LEUKOCYTE ESTERASE POC (test code = NEGATIVE LEUUPOC) UA GLU: NEGATIVEKET UA NEGATIVEPH UA 8.0UA NIT NegativePROT UA 15 (TRACE)BL UA NEGATIVEUA KOKO NegativeTime performed: 1600UA GLUCOSE DIPSTIC [id number] 16:26:00 Test Item Value Reference Range Interpretation Comments UA GLUCOSE DIPSTIC POC (test code = Negative Negative GLUUP) UA GLU: NEGATIVEKET UA NEGATIVEPH UA 8.0UA NIT NegativePROT UA 15 (TRACE)BL UA NEGATIVEUA KOKO NegativeTime performed: 1600UA KETONE DIPSTICK [id number] 16:26:00 Test Item Value Reference Range Interpretation Comments UA KETONE DIPSTICK POC (test code = Negative Negative KETUP) UA GLU: NEGATIVEKET UA NEGATIVEPH UA 8.0UA NIT NegativePROT UA 15 (TRACE)BL UA NEGATIVEUA KOKO NegativeTime performed: 1600UA BLOOD DIPSTIC [id number] 16:26:00 Test Item Value Reference Range Interpretation Comments UA BLOOD DIPSTIC POC (test code = Negative NEGATIVE BLUP) UA GLU: NEGATIVEKET UA NEGATIVEPH UA 8.0UA NIT NegativePROT UA 15 (TRACE)BL UA NEGATIVEUA KOKO NegativeTime performed: 1600UA PH DIPSTIC [id number] 16:26:00 Test Item Value Reference Range Interpretation Comments UA PH DIPSTIC POC (test code = PHUP) 8 5-8 N UA GLU: NEGATIVEKET UA NEGATIVEPH UA 8.0UA NIT NegativePROT UA 15 (TRACE)BL UA NEGATIVEUA KOKO NegativeTime performed: 1600UA PROTEIN DIPSTICK [id number] 16:26:00 Test Item Value Reference Range Interpretation Comments UA PROTEIN DIPSTICK POC (test code = Neg -15 DPROUP) UA GLU: NEGATIVEKET UA NEGATIVEPH UA 8.0UA NIT NegativePROT UA 15 (TRACE)BL UA NEGATIVEUA [place] NegativeTime performed: 1600UA NITRITE DIPSTICK [id number] 16:26:00 Test Item Value Reference Range Interpretation Comments UA NITRITE DIPSTICK POC (test code = Negative NITUP) UA GLU: NEGATIVEKET UA NEGATIVEPH UA 8.0UA NIT NegativePROT UA 15 (TRACE)BL UA NEGATIVEUA [place] NegativeTime performed: 1600UA LEUKOCYTE ESTERASE [id number] 16:26:00 Test Item Value Reference Range Interpretation Comments UA LEUKOCYTE ESTERASE POC (test code = NEGATIVE LEUUPOC) UA GLU: NEGATIVEKET UA NEGATIVEPH UA 8.0UA NIT NegativePROT UA 15 (TRACE)BL UA NEGATIVEUA [place] NegativeTime performed: 1600UA GLUCOSE DIPSTIC [id number] 16:26:00 Test Item Value Reference Range Interpretation Comments UA GLUCOSE DIPSTIC POC (test code = Negative Negative GLUUP) UA GLU: NEGATIVEKET UA NEGATIVEPH UA 8.0UA NIT NegativePROT UA 15 (TRACE)BL UA NEGATIVEUA KOKO NegativeTime performed: 1600UA KETONE DIPSTICK [id number] 16:26:00 Test Item Value Reference Range Interpretation Comments UA KETONE DIPSTICK POC (test code = Negative Negative KETUP) UA GLU: NEGATIVEKET UA NEGATIVEPH UA 8.0UA NIT NegativePROT UA 15 (TRACE)BL UA NEGATIVEUA KOKO NegativeTime performed: 1600UA BLOOD DIPSTIC [id number] 16:26:00 Test Item Value Reference Range Interpretation Comments UA BLOOD DIPSTIC POC (test code = Negative NEGATIVE BLUP) UA GLU: NEGATIVEKET UA NEGATIVEPH UA 8.0UA NIT NegativePROT UA 15 (TRACE)BL UA NEGATIVEUA KOKO NegativeTime performed: 1600UA PH DIPSTIC [id number] 16:26:00 Test Item Value Reference Range Interpretation Comments UA PH DIPSTIC POC (test code = PHUP) 8 5-8 N UA GLU: NEGATIVEKET UA NEGATIVEPH UA 8.0UA NIT NegativePROT UA 15 (TRACE)BL UA NEGATIVEUA KOKO NegativeTime performed: 1600UA PROTEIN DIPSTICK [id number] 16:26:00 Test Item Value Reference Range Interpretation Comments UA PROTEIN DIPSTICK POC (test code 15 (Trace) Neg -15 A = DPROUP) UA GLU: NEGATIVEKET UA NEGATIVEPH UA 8.0UA NIT NegativePROT UA 15 (TRACE)BL UA NEGATIVEUA KOKO NegativeTime performed: 1600UA NITRITE DIPSTICK [id number] 16:26:00 Test Item Value Reference Range Interpretation Comments UA NITRITE DIPSTICK POC (test code = Negative NITUP) UA GLU: NEGATIVEKET UA NEGATIVEPH UA 8.0UA NIT NegativePROT UA 15 (TRACE)BL UA NEGATIVEUA KOKO NegativeTime performed: 1600UA LEUKOCYTE ESTERASE [id number] 16:26:00 Test Item Value Reference Range Interpretation Comments UA LEUKOCYTE ESTERASE POC (test code = NEGATIVE LEUUPOC) UA GLU: NEGATIVEKET UA NEGATIVEPH UA 8.0UA NIT NegativePROT UA 15 (TRACE)BL UA NEGATIVEUA KOKO NegativeTime performed: 1600UA GLUCOSE DIPSTIC [id number] 16:26:00 Test Item Value Reference Range Interpretation Comments UA GLUCOSE DIPSTIC POC (test code = Negative Negative GLUUP) UA GLU: NEGATIVEKET UA NEGATIVEPH UA 8.0UA NIT NegativePROT UA 15 (TRACE)BL UA NEGATIVEUA KOKO NegativeTime performed: 1600UA KETONE DIPSTICK [id number] 16:26:00 Test Item Value Reference Range Interpretation Comments UA KETONE DIPSTICK POC (test code = Negative Negative KETUP) UA GLU: NEGATIVEKET UA NEGATIVEPH UA 8.0UA NIT NegativePROT UA 15 (TRACE)BL UA NEGATIVEUA KOKO NegativeTime performed: 1600UA BLOOD DIPSTIC [id number] 16:26:00 Test Item Value Reference Range Interpretation Comments UA BLOOD DIPSTIC POC (test code = Negative NEGATIVE BLUP) UA GLU: NEGATIVEKET UA NEGATIVEPH UA 8.0UA NIT NegativePROT UA 15 (TRACE)BL UA NEGATIVEUA KOKO NegativeTime performed: 1600UA PH DIPSTIC [id number] 16:26:00 Test Item Value Reference Range Interpretation Comments UA PH DIPSTIC POC (test code = PHUP) 8 5-8 N UA GLU: NEGATIVEKET UA NEGATIVEPH UA 8.0UA NIT NegativePROT UA 15 (TRACE)BL UA NEGATIVEUA KOKO NegativeTime performed: 1600UA PROTEIN DIPSTICK [id number] 16:26:00 Test Item Value Reference Range Interpretation Comments UA PROTEIN DIPSTICK POC (test code 15 (Trace) Neg -15 A = DPROUP) UA GLU: NEGATIVEKET UA NEGATIVEPH UA 8.0UA NIT NegativePROT UA 15 (TRACE)BL UA NEGATIVEUA KOKO NegativeTime performed: 1600UA NITRITE DIPSTICK [id number] 16:26:00 Test Item Value Reference Range Interpretation Comments UA NITRITE DIPSTICK POC (test code = Negative Negative NITUP) UA GLU: NEGATIVEKET UA NEGATIVEPH UA 8.0UA NIT NegativePROT UA 15 (TRACE)BL UA NEGATIVEUA KOKO NegativeTime performed: 1600UA LEUKOCYTE ESTERASE [id number] 16:26:00 Test Item Value Reference Range Interpretation Comments UA LEUKOCYTE ESTERASE POC (test code = NEGATIVE LEUUPOC) UA GLU: NEGATIVEKET UA NEGATIVEPH UA 8.0UA NIT NegativePROT UA 15 (TRACE)BL UA NEGATIVEUA KOKO NegativeTime performed: 1600UA GLUCOSE DIPSTIC [id number] 16:26:00 Test Item Value Reference Range Interpretation Comments UA GLUCOSE DIPSTIC POC (test code = Negative Negative GLUUP) UA GLU: NEGATIVEKET UA NEGATIVEPH UA 8.0UA NIT NegativePROT UA 15 (TRACE)BL UA NEGATIVEUA KOKO NegativeTime performed: 1600UA KETONE DIPSTICK [id number] 16:26:00 Test Item Value Reference Range Interpretation Comments UA KETONE DIPSTICK POC (test code = Negative Negative KETUP) UA GLU: NEGATIVEKET UA NEGATIVEPH UA 8.0UA NIT NegativePROT UA 15 (TRACE)BL UA NEGATIVEUA KOKO NegativeTime performed: 1600UA BLOOD DIPSTIC [id number] 16:26:00 Test Item Value Reference Range Interpretation Comments UA BLOOD DIPSTIC POC (test code = Negative NEGATIVE BLUP) UA GLU: NEGATIVEKET UA NEGATIVEPH UA 8.0UA NIT NegativePROT UA 15 (TRACE)BL UA NEGATIVEUA KOKO NegativeTime performed: 1600UA PH DIPSTIC [id number] 16:26:00 Test Item Value Reference Range Interpretation Comments UA PH DIPSTIC POC (test code = PHUP) 8 5-8 N UA GLU: NEGATIVEKET UA NEGATIVEPH UA 8.0UA NIT NegativePROT UA 15 (TRACE)BL UA NEGATIVEUA KOKO NegativeTime performed: 1600UA PROTEIN DIPSTICK [id number] 16:26:00 Test Item Value Reference Range Interpretation Comments UA PROTEIN DIPSTICK POC (test code 15 (Trace) Neg -15 A = DPROUP) UA GLU: NEGATIVEKET UA NEGATIVEPH UA 8.0UA NIT NegativePROT UA 15 (TRACE)BL UA NEGATIVEUA KOKO NegativeTime performed: 1600UA NITRITE DIPSTICK [id number] 16:26:00 Test Item Value Reference Range Interpretation Comments UA NITRITE DIPSTICK POC (test code = Negative Negative NITUP) UA GLU: NEGATIVEKET UA NEGATIVEPH UA 8.0UA NIT NegativePROT UA 15 (TRACE)BL UA NEGATIVEUA KOKO NegativeTime performed: 1600UA LEUKOCYTE ESTERASE [id number] 16:26:00 Test Item Value Reference Range Interpretation Comments UA LEUKOCYTE ESTERASE POC (test code NEGATIVE NEGATIVE = LEUUPOC) UA GLU: NEGATIVEKET UA NEGATIVEPH UA 8.0UA NIT NegativePROT UA 15 (TRACE)BL UA NEGATIVEUA KOKO NegativeTime performed: 1600
--- NOTE | 2021-01-16 20:02 | RAD REPORT ---
EXAM DESCRIPTION: RAD - Chest Single View - 01/16/2021 7:56 pm CLINICAL HISTORY: COUGH COMPARISON: No comparisons FINDINGS: Lines: None. Lungs: No evidence of edema or pneumonia. Pleural: No significant pleural effusions or pneumothorax. Cardiac: Cardiomegaly . Bones: No acute fractures. Other: IMPRESSION: No acute cardiopulmonary disease.
--- NOTE | 2021-01-16 20:21 | RAD REPORT ---
EXAM DESCRIPTION: CT - Head Brain Wo Cont - 01/16/2021 8:10 pm CLINICAL HISTORY: Dizziness;Headache COMPARISON: No comparisons TECHNIQUE: All CT scans are performed using dose optimization technique as appropriate and may inclu de automated exposure control or mA/KV adjustment according to patient size. FINDINGS: No intracranial hemorrhage, hydrocephalus or extra-axial fluid collection.No areas of brai n edema or evidence of midline shift. The paranasal sinuses and mastoids are clear. The calvarium is intact. IMPRESSION: No acute intracranial abnormality.
[2021-01-16 20:25] LABS: Urine Blood Negative (Negative); Urine Glucose Negative (Negative); Urine Protein Trace (Negative); Urine Specific Gravity >=1.030 (1.005-1.030)
[2021-01-16 20:46] LABS: Absolute Lymphocytes (CBC) 1.4 K/uL (0.7-4.9); Basophils % 0.8 % (0-1.3); Hematocrit 43.6 % (36.0-45.0); Lymphocytes % 17.7 % (15.3-44.8); MPV 7.9 fL (7.6-11.3)
[2021-01-16] MEDS ORDERED: METOCLOPRAMIDE 10 MG/2mL INJ ONE (20:56)
[2021-01-16] MEDS ORDERED: DIPHENHYDRAMINE 50 MG/ML VIAL ONE (20:56)
[2021-01-16] MEDS ORDERED: AMLODIPINE 5 MG TAB ONE (20:57)
[2021-01-16] MEDS ORDERED: KETOROLAC 30 MG/ML INJ ONE (21:17)
[2021-01-16] MEDS ORDERED: NA CHLORIDE 0.9% 1,000 ML ONE (21:17)
[2021-01-16 21:19] LABS: AST/SGOT 258 U/L (15-37); Albumin 4.4 g/dL (3.4-5.0); Alkaline Phosphatase 70 U/L (45-117); BUN Blood Urea Nitrogen 8 mg/dL (7-18); Bicarbonate 26 mmol/L (21-32); Bilirubin Total 0.5 mg/dL (0.2-1.0); Glucose Level 216 mg/dL (74-106); Potassium 3.7 mmol/L (3.5-5.1); Protein, Total 9.1 g/dL (6.4-8.2); Sodium Level 136 mmol/L (136-145); Troponin (Emerg Dept Use Only) < 0.02 ng/mL (0.0-0.045)
[2021-01-16 21:22] LABS: ALT/SGPT 318 U/L (12-78)
[2021-01-16 21:24] LABS: Urine Specific Gravity/Preg >1.030 (1.005-1.030)
[2021-01-16 21:24] LABS: Urine Bacteria 20-50 /HPF (<20); Urine RBC NONE SEEN /HPF (NONE SEEN)
[2021-01-16 21:25] LABS: Calcium Oxalate Crystals- Ur FEW (NONE SEEN); Urine Amorphous Sediment 1+ /HPF (NONE SEEN); Urine Mucus MOD /HPF (NONE SEEN)
--- NOTE | 2021-01-16 22:21 | EDPHYS ---
Physician Documentation [facility] Name: Sharon Bose Age: 30 yrs Sex: Female : 1990 Arrival Date: 01/16/2021 Time: 18:07 Bed 14 Private MD: ED Physician Micheal Gracia HPI: 01/16 19:44 This 30 yrs old Female presents to ER via Ambulatory with complaints of High deng Blood Pressure. 19:44 The patient has elevated blood pressure and discovered this at home, with a home deng device. Onset: The symptoms/episode began/occurred this morning. Modifying factors: The symptoms are aggravated by activity, The symptoms are alleviated by remaining still. Associated signs and symptoms: Pertinent positives: dizziness, headache, nausea. Severity of symptoms: At its worst the blood pressure was moderate, in the emergency department the blood pressure is unchanged. The patient has experienced similar episodes in the past, a few times. 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 - Social history:: Smoking status: Patient denies any tobacco usage or history of. ROS: 19:45 Constitutional: Negative for fever, chills, and weight loss, Eyes: Negative for injury, deng pain, redness, and discharge, ENT: Negative for injury, pain, and discharge, Neck: Negative for injury, pain, and swelling, Cardiovascular: Negative for chest pain, palpitations, and edema, Respiratory: Negative for shortness of breath, cough, wheezing, and pleuritic chest pain, Abdomen/GI: Negative for abdominal pain, nausea, vomiting, diarrhea, and constipation, Back: Negative for injury and pain, : Negative for injury, bleeding, discharge, and swelling, MS/Extremity: Negative for injury and deformity, Skin: Negative for injury, rash, and discoloration, Neuro: Negative for headache, weakness, numbness, tingling, and seizure, Psych: Negative for depression, anxiety, suicide ideation, homicidal ideation, and hallucinations, Endocrine: Negative for neck swelling, polydipsia, polyuria, polyphagia, and marked weight changes, Hematologic/Lymphatic: Negative for swollen nodes, abnormal bleeding, and unusual bruising. Exam: 19:45 Constitutional: This is a well developed, well nourished patient who is awake, alert, deng and in no acute distress. Head/Face: Normocephalic, atraumatic. Eyes: Pupils equal round and reactive to light, extra-ocular motions intact. Lids and lashes normal. Conjunctiva and sclera are non-icteric and not injected. Cornea within normal limits. Periorbital areas with no swelling, redness, or edema. ENT: Nares patent. No nasal discharge, no septal abnormalities noted. Tympanic membranes are normal and external auditory canals are clear. Oropharynx with no redness, swelling, or masses, exudates, or evidence of obstruction, uvula midline. Mucous membranes moist. Neck: Trachea midline, no thyromegaly or masses palpated, and no cervical lymphadenopathy. Supple, full range of motion without nuchal rigidity, or vertebral point tenderness. No Meningismus. Chest/axilla: Normal chest wall appearance and motion. Nontender with no deformity. No lesions are appreciated. Cardiovascular: Regular rate and rhythm with a normal S1 and S2. No gallops, murmurs, or rubs. Normal PMI, no JVD. No pulse deficits. Respiratory: Lungs have equal breath sounds bilaterally, clear to auscultation and percussion. No rales, rhonchi or wheezes noted. No increased work of breathing, no retractions or nasal flaring. Abdomen/GI: Soft, non-tender, with normal bowel sounds. No distension or tympany. No guarding or rebound. No evidence of tenderness throughout. Back: No spinal tenderness. No costovertebral tenderness. Full range of motion. Skin: Warm, dry with normal turgor. Normal color with no rashes, no lesions, and no evidence of cellulitis. MS/ Extremity: Pulses equal, no cyanosis. Neurovascular intact. Full, normal range of motion. Neuro: Awake and alert, GCS 15, oriented to person, place, time, and situation. Cranial nerves II-XII grossly intact. Motor strength 5/5 in all extremities. Sensory grossly intact. Cerebellar exam normal. Normal gait. Psych: Awake, alert, with orientation to person, place and time. Behavior, mood, and affect are within normal limits. Vital Signs: 18:28 BP 135 / 93; Pulse 95; Resp 20; Temp 97.3(TE); Pulse Ox 99% on R/A; Weight 120.2 kg kg (R); Height 5 ft. 3 in. (160.02 cm) (R); Pain 7/10; 19:26 BP 147 / 79; Pulse 87; Resp 18; Pulse Ox 99% on R/A; df1 21:09 BP 125 / 88; Pulse 89; Resp 18; Pulse Ox 99% on R/A; df1 21:11 BP 125 / 88; Pulse 89; Resp 18; Pulse Ox 99% on R/A; df1 22:24 BP 124 / 87; Pulse 90; Resp 18; Pulse Ox 99% on R/A; df1 18:28 Body Mass Index 46.94 (120.20 kg, 160.02 cm) kg Josué Coma Score: 19:45 Eye Response: spontaneous(4). Verbal Response: oriented(5). Motor Response: obeys deng commands(6). Total: 15. MDM: 18:37 Patient medically screened. deng 19:45 Differential diagnosis: cluster headache, intracerebral hemorrhage, hyponatremia, deng meningitis, sinusitis, temporal arteritis, vasomotor headache. Differential diagnosis: cardiac arrhythmia, generalized weakness, near-syncope, . Data reviewed: vital signs, nurses notes, lab test result(s), EKG, radiologic studies, CT scan, plain films. Data interpreted: electrician's assistant: rate is 87 beats/min, rhythm is regular, Pulse oximetry: on room air is 99 %. Test interpretation: by ED physician or midlevel provider: ECG, plain radiologic studies. Counseling: I had a detailed discussion with the patient and/or guardian regarding: the historical points, exam findings, and any diagnostic results supporting the discharge/admit diagnosis, lab results, radiology results, the need for outpatient follow up, for definitive care, a weatherization administrator, a family practitioner, a neurologist. 01/16 19:44 Order name: CBC with Diff; Complete Time: 21:32 [facility] 01/16 19:44 Order name: Comprehensive Metabolic Panel; Complete Time: 21:23 [facility] 01/16 19:44 Order name: Troponin (emerg Dept Use Only); Complete Time: 21:23 [facility] 01/16 20:25 Order name: Urine Dipstick-Ancillary; Complete Time: 20:38 [facility] 01/16 20:26 Order name: Urine Microscopic Only; Complete Time: 21:32 01/16 19:44 Order name: CT Head Brain wo Cont; Complete Time: 20:38 [facility] 01/16 19:44 Order name: Chest Single View XRAY; Complete Time: 20:38 [facility] 01/16 20:36 Order name: SARS-COV-2 RT PCR; Complete Time: 20:38 [facility] 01/16 21:07 Order name: Urine --Ancillary (enter results); Complete Time: 21:32 [facility] 01/16 19:44 Order name: EKG; Complete Time: 19:45 [facility] 01/16 19:44 Order name: EKG - Nurse/Tech; Complete Time: 20:58 [facility] 01/16 19:44 Order name: Urine Dipstick-Ancillary (obtain specimen); Complete Time: 20:36 [facility] 01/16 19:44 Order name: Urine Test (obtain specimen); Complete Time: 20:36 [facility] Administered Medications: 20:47 Drug: Benadryl (diphenhydrAMINE) 37.5 mg Route: IVP; Site: right antecubital; df1 22:26 Follow up: Response: No adverse reaction; Pain is decreased df1 20:47 Drug: Reglan (metoCLOPramide) 10 mg Route: IVP; Site: right antecubital; df1 21:11 Follow up: Response: No adverse reaction; Pain is decreased df1 21:12 Follow up: Response: No adverse reaction; Pain is decreased df1 22:26 Follow up: Response: No adverse reaction; Pain is decreased df1 20:47 Drug: Norvasc (amlodipine) 5 mg Route: PO; df1 21:11 Follow up: BP 125 / 88; Pulse 89 bpm; Resp 18 bpm; Pulse Ox 99% RA df1 21:11 Follow up: Response: No adverse reaction df1 22:26 Follow up: Response: No adverse reaction df1 20:57 Drug: Ketorolac 30 mg Route: IVP; Site: right antecubital; df1 21:12 Follow up: Response: No adverse reaction; Pain is decreased df1 22:27 Follow up: Response: No adverse reaction; Pain is decreased df1 20:58 Drug: NS 0.9% 1000 ml Route: IV; Rate: 1 bolus; Site: right antecubital; df1 21:13 Follow up: Response: No adverse reaction df1 22:27 Follow up: IV Intake: 1000ml df1 Disposition Summary: 01/16/21 22:20 Discharge Ordered Location: Home pm1 Problem: new pm1 Symptoms: have improved pm1 Condition: Stable pm1 Diagnosis - Vomiting pm1 - Essential (primary) hypertension pm1 - Headache pm1 Followup: deng - With: Private Physician - When: 2 - 3 days - Reason: Recheck today's complaints, Continuance of care, Re-evaluation by your physician Followup: deng - With: - When: 2 - 3 days - Reason: Recheck today's complaints, Re-evaluation by your physician Followup: deng - With: - When: 2 - 3 days - Reason: Recheck today's complaints, Re-evaluation by your physician Discharge Instructions: - Discharge Summary Sheet deng - General Headache Without Cause deng - Hypertension, Adult deng - Hypertension, Adult, [id number] deng - How to Take Your Blood Pressure, [id number] deng - Managing Your Hypertension deng Forms: - Medication Reconciliation Form pm1 - Thank You Letter pm1 - Antibiotic Education pm1 - Prescription Opioid Use pm1 Prescriptions: - Ibuprofen 600 mg Oral Tablet - take 1 tablet by ORAL route every 6 hours As needed take with food; 20 tablet; deng Refills: 0, Product Selection Permitted - Norvasc 5 mg Oral Tablet - take 1 tablet by ORAL route once daily; 20 tablet; Refills: 0, Product deng Selection Permitted - Zofran 4 mg Oral Tablet - take 1 tablet by ORAL route every 12 hours As needed; 20 tablet; Refills: 0, deng Product Selection Permitted Signatures: Dispatcher [employer] EDMS Micheal Gracia MD MD cha Marinas, Patrick, HEALTH INSPECTOR FOOD HEALTH INSPECTOR FOOD pm1 Maame Castanon, GERMANIA RN Maria Isabel Farr df1 Corrections: (The following items were deleted from the chart) 19:25 18:34 CORONAVIRUS+ ordered. EDSC EDMS
--- NOTE | 2021-01-16 22:21 | ER ---
Nurse's Notes [facility] Name: Sharon Bose Age: 30 yrs Sex: Female : 1990 Arrival Date: 01/16/2021 Time: 18:07 Bed 14 Private MD: Diagnosis: Vomiting;Essential (primary) hypertension;Headache Presentation: 01/16 18:28 Chief complaint: Patient states: Headache, nausea since 0900. Took B/P at home and it kg was 152/104. Coronavirus screen: Vaccine status: Patient reports being unvaccinated. headache, nausea, Client presents with at least one sign or symptom that may indicate coronavirus-19. Standard/surgical mask placed on the client. Provider contacted for isolation considerations. Ebola Screen: Patient negative for fever greater than or equal to 101.5 degrees Fahrenheit, and additional compatible Ebola Virus Disease symptoms Patient denies exposure to infectious person. Patient denies travel to an Ebola-affected area in the 21 days before illness onset. Initial Sepsis Screen: Does the patient meet any 2 criteria? No. Patient's initial sepsis screen is negative. Does the patient have a suspected source of infection? No. Patient's initial sepsis screen is negative. Risk Assessment: Do you want to hurt yourself or someone else? Patient reports no desire to harm self or others. Onset of symptoms was January 16, 2021 at 09:00. 18:28 Method Of Arrival: Ambulatory kg 18:28 Acuity: ABDIFATAH 3 kg 21:13 Note Pt resting quietly in bed. Ice pack given for H/A. warm blanket and pillow given. df1 Light out. Family at bedside. Pt states pain is decresed from 7/0 to 5/10. 22:25 Note Pt states h/a pain 3/10. pt ate sandwich and chips. Denies N/V. Pt to be df1 discharged. Triage Assessment: 18:30 General: Appears in no apparent distress. Behavior is calm, cooperative, appropriate kg for age, quiet. Pain: Complains of pain in Head Pain currently is 7 out of 10 on a pain scale. at worst was 8 out of 10 on a pain scale. level that patient reports is acceptable is 5 out of 10 on a pain scale. Quality of pain is described as Pressure. 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 - Social history:: Smoking status: Patient denies any tobacco usage or history of. Screenin:32 Abuse screen: Denies threats or abuse. Denies injuries from another. Nutritional kg screening: No deficits noted. Tuberculosis screening: No symptoms or risk factors identified. Fall Risk None identified. Assessment: 20:16 General: Appears in no apparent distress. comfortable, obese. Pain: Complains of pain df1 in face Pain currently is 7 out of 10 on a pain scale. Neuro: No deficits noted. Cardiovascular: No deficits noted. Respiratory: No deficits noted. GI: No deficits noted. : No deficits noted. EENT: No deficits noted. Derm: No deficits noted. Musculoskeletal: No deficits noted. Vital Signs: 18:28 BP 135 / 93; Pulse 95; Resp 20; Temp 97.3(TE); Pulse Ox 99% on R/A; Weight 120.2 kg kg (R); Height 5 ft. 3 in. (160.02 cm) (R); Pain 7/10; 19:26 BP 147 / 79; Pulse 87; Resp 18; Pulse Ox 99% on R/A; df1 21:09 BP 125 / 88; Pulse 89; Resp 18; Pulse Ox 99% on R/A; df1 21:11 BP 125 / 88; Pulse 89; Resp 18; Pulse Ox 99% on R/A; df1 22:24 BP 124 / 87; Pulse 90; Resp 18; Pulse Ox 99% on R/A; df1 18:28 Body Mass Index 46.94 (120.20 kg, 160.02 cm) kg Josué Coma Score: 19:45 Eye Response: spontaneous(4). Verbal Response: oriented(5). Motor Response: obeys deng commands(6). Total: 15. ED Course: 18:07 Patient arrived in ED. mr 18:30 Triage completed. kg 18:32 Patient has correct armband on for positive identification. kg 18:32 No provider procedures requiring assistance completed. kg 18:37 Micheal Gracia MD is Attending Physician. deng 19:13 Josee Fernández is Primary Nurse. kh1 19:55 Chest Single View XRAY In Process Unspecified. EDMS 20:10 CT Head Brain wo Cont In Process Unspecified. EDMS 20:35 Inserted saline lock: 22 gauge in right antecubital area, using aseptic technique. ds4 Blood collected. 20:38 Vitaliy Priest, KIRK is PHCP. pm1 22:20 Quinten Gibson MD is Referral Physician. pm1 22:20 Madi Tracy MD is Referral Physician. pm1 22:39 IV discontinued, intact. df1 22:40 EKG completed in triage. Results shown to MD. df1 22:40 EKG completed in triage. Results shown to MD. df1 Administered Medications: 20:47 Drug: Benadryl (diphenhydrAMINE) 37.5 mg Route: IVP; Site: right antecubital; df1 22:26 Follow up: Response: No adverse reaction; Pain is decreased df1 20:47 Drug: Reglan (metoCLOPramide) 10 mg Route: IVP; Site: right antecubital; df1 21:11 Follow up: Response: No adverse reaction; Pain is decreased df1 21:12 Follow up: Response: No adverse reaction; Pain is decreased df1 22:26 Follow up: Response: No adverse reaction; Pain is decreased df1 20:47 Drug: Norvasc (amlodipine) 5 mg Route: PO; df1 21:11 Follow up: BP 125 / 88; Pulse 89 bpm; Resp 18 bpm; Pulse Ox 99% RA df1 21:11 Follow up: Response: No adverse reaction df1 22:26 Follow up: Response: No adverse reaction df1 20:57 Drug: Ketorolac 30 mg Route: IVP; Site: right antecubital; df1 21:12 Follow up: Response: No adverse reaction; Pain is decreased df1 22:27 Follow up: Response: No adverse reaction; Pain is decreased df1 20:58 Drug: NS 0.9% 1000 ml Route: IV; Rate: 1 bolus; Site: right antecubital; df1 21:13 Follow up: Response: No adverse reaction df1 22:27 Follow up: IV Intake: 1000ml df1 Intake: 22:27 IV: 1000ml; Total: 1000ml. df1 Outcome: 22:20 Discharge ordered by . pm1 22:39 Discharged to home ambulatory. df1 22:39 Condition: good 22:39 Discharge instructions given to patient, family. 22:40 Patient left the ED. df1 Signatures: Dispatcher [employer] EDMS Micheal Gracia MD MD cha Rivera, Lesly mr Purvis Edwar ds4 Vitaliy Priest, FILTER CHANGING TECHNICIAN FILTER CHANGING TECHNICIAN pm1 Maame Castanon, GERMANIA RN Josee Brower kh1 Maria Isabel Mariano df1
[2021-01-16 22:47] VITALS: TEMP 97.3; O2SAT 99
[2021-01-16 22:53] VITALS: BP 124/87
--- NOTE | 2021-01-17 08:15 | EKG ---
Test Date: 2021-01-16 Test Time: 21:04:37 Twisting Frame Fixer: DOUGLAS MEASUREMENT RESULTS: Intervals: Rate: 84 MA: 164 QRSD: 86 QT: 390 QTc: 460 Brady: P: 31 MA: 164 QRS: 17 T: 35 INTERPRETIVE STATEMENTS: Normal sinus rhythm Normal ECG No previous ECG available for comparison Electronically Signed On 01-17-21 08:14:12 CDT by Madi Tracy
== END 2021-01-16 22:40 | disposition home or self-care (01) ==
LOC: ER 18:04
DX: I10 Essential (primary) hypertension (principal); R11.10 Vomiting, unspecified; Z20.822 Contact with and (suspected) exposure to COVID-19
CPT/HCPCS: 93005; 85025; 36415; 81025; 84484; 80053; 70450; 71045; 96375; 96374; 99284; U0003; J2765; J1200; J7030; 81003; 81015